=== PATIENT | male | born 1995 | race Caucasian/White ===

== ENCOUNTER 2018-02-12 00:58 | Emergency (ER) | payer MEDICARE ==
[2018-02-12] MEDS ORDERED: SODIUM CHLORIDE 0.9% 1,000 ML IV STA (01:04)
--- NOTE | 2018-02-12 01:07 | ED ---
Seizure HPI - General Stated Complaint: SEIZURE Time Seen by Provider: 02/12/18 01:00 - History of Present Illness Initial Comments: House a 22-year-old male is brought to the ED via EMS for possible seizure-like episode. Reports that he was in his usual state of health throughout the day today, he denies any alcohol or drug use. He reports that he laid down and suddenly felt like his brain turned off. He walked out to the common room in his house and told his mother he thought he was having a seizure. At that point his right arm began to shake. He remained awake alert oriented and speaking. EMS was called. They report that the patient's right arm seemed to be in a flexed position but otherwise no obvious seizure activity. The patient had no postictal period. No tongue biting or loss of bowel or bladder continence. The patient remained awake and alert but continued to stay he believes he is having seizure. Mom reports the patient has a distant history of something similar to this in 2007, he was evaluated at that time, he was transiently placed on antiepileptic medications but after a thorough neurology evaluation at the [facility] was determined that he was not epileptic medications were discontinued. He is otherwise healthy. He was recently treated for an upper respiratory infection with by mouth antibiotics which he completed earlier in the week. - Related Data Allergies Allergy/AdvReac Type Severity Reaction Status Date / Time No Known Allergies Allergy Verified 02/12/18 01:07 Review of Systems ROS Statement: Those systems with pertinent positive or pertinent negative responses have been documented in the HPI. ROS Other: All systems not noted in ROS Statement are negative. General Exam - General Exam Comments Initial Comments: Physical Exam GENERAL: Patient is well-developed and well-nourished. Patient is nontoxic and well- hydrated and is in no distress. HENT: Normocephalic, Atraumatic. No evidence of tongue biting EYES: PERRL, EOMI PULMONARY: Tachypnea Unlabored respirations. No audible rales rhonchi or wheezing was noted. CARDIOVASCULAR: There is a regular rate and rhythm without any murmurs gallops or rubs. ABDOMEN: Soft and nontender with normal bowel sounds. SKIN: Skin is clear with no lesions or rashes and otherwise unremarkable. : Deferred NEUROLOGIC: Patient is alert and oriented x3. Moving all extremities spontaneously No focal neurologic deficits MUSCULOSKELETAL: Normal extremities with adequate strength and full range of motion. No lower extremity swelling or edema. No calf tenderness. PSYCHIATRIC: Very anxious appearing Limitations: no limitations Course Vital Signs 02/12/18 01:01 Temperature 99.2 F Pulse Rate 85 Respiratory 18 Rate Blood Pressure 143/93 O2 Sat by Pulse 97 Oximetry Medical Decision Making - Medical Decision Making Patient was seen and evaluated, history obtained from patient and EMS EMS contacted because the patient told his mother he felt like he was having a seizure, reports he felt like his brain turned off and his right arm was shaking No witnessed seizure activity No post ictal state, no evidence of seizure Patient continues to complain that he is seizing at time of admission Labs and imaging ordered Labs with no significant abnormality CT head with no abnormality Patient was re-assessed, reports feeling well, I offered patient observation for further monitoring vs discharge home with out patient follow up. Patient and mother at bedside prefer discharge home at this time. Return parameters discussed. patient discharged home in stable condition. - Lab Data Result diagrams: 02/12/18 01:08 02/12/18 01:08 Lab Results 02/12/18 02/12/18 02/12/18 Range/Units 01:08 01:08 01:29 WBC 13.1 H (3.8-10.6) k/uL RBC 5.25 (4.30-5.90) m/uL Hgb 16.4 (13.0-17.5) gm/dL Hct 45.8 (39.0-53.0) % MCV 87.3 (80.0-100.0) fL MCH 31.2 (25.0-35.0) pg MCHC 35.7 (31.0-37.0) g/dL RDW 12.5 (11.5-15.5) % Plt Count 321 (150-450) k/uL Neutrophils % 82 % Lymphocytes % 12 % Monocytes % 4 % Eosinophils % 0 % Basophils % 1 % Neutrophils # 10.7 H (1.3-7.7) k/uL Lymphocytes # 1.6 (1.0-4.8) k/uL Monocytes # 0.6 (0-1.0) k/uL Eosinophils # 0.1 (0-0.7) k/uL Basophils # 0.1 (0-0.2) k/uL Sodium 140 (137-145) mmol/L Potassium 3.8 (3.5-5.1) mmol/L Chloride 109 H (98-107) mmol/L Carbon Dioxide 19 L (22-30) mmol/L Anion Gap 12 mmol/L BUN 14 (9-20) mg/dL Creatinine 0.77 (0.66-1.25) mg/dL Est GFR (CKD-EPI)AfAm >90 (>60 ml/min/1.73 sqM) Est GFR (CKD-EPI)NonAf >90 (>60 ml/min/1.73 sqM) Glucose 109 H (74-99) mg/dL Calcium 9.8 (8.4-10.2) mg/dL Total Bilirubin 0.7 (0.2-1.3) mg/dL AST 20 (17-59) U/L ALT 25 (21-72) U/L Alkaline Phosphatase 65 (38-126) U/L Total Protein 7.2 (6.3-8.2) g/dL Albumin 4.5 (3.5-5.0) g/dL Urine Color Yellow Urine Appearance Cloudy (Clear) Urine pH 7.0 (5.0-8.0) Ur Specific [place] 1.027 (1.001-1.035) Urine Protein 1+ H (Negative) Urine Glucose (UA) Negative (Negative) Urine Ketones 2+ H (Negative) Urine Blood Negative (Negative) Urine Nitrite Negative (Negative) Urine Bilirubin Negative (Negative) Urine Urobilinogen 2.0 (<2.0) mg/dL Ur Leukocyte Esterase Negative (Negative) Urine RBC 4 (0-5) /hpf Urine WBC 4 (0-5) /hpf Amorphous Sediment Rare H (None) /hpf Urine Mucus Moderate H (None) /hpf Urine Opiates Screen Not Detected (NotDetected) Ur Oxycodone Screen Not Detected (NotDetected) Urine Methadone Screen Not Detected (NotDetected) Ur Propoxyphene Screen Not Detected (NotDetected) Ur Barbiturates Screen Not Detected (NotDetected) U Tricyclic Antidepress Not Detected (NotDetected) Ur Phencyclidine Scrn Not Detected (NotDetected) Ur Amphetamines Screen Not Detected (NotDetected) U Methamphetamines Scrn Not Detected (NotDetected) U Benzodiazepines Scrn Not Detected (NotDetected) Urine Cocaine Screen Not Detected (NotDetected) U Marijuana (THC) Screen Not Detected (NotDetected) Serum Alcohol <10 mg/dL - EKG Data -: EKG Interpreted by Me EKG shows normal: sinus rhythm Rate: normal EKG Comments: EKG obtained at 1:45 AM, rate is 71, rhythm is sinus, there is a rightward axis , normal intervals, IA 152, QRS 96, QTC 447. There are no acute ST elevations or depressions no evidence of acute ischemia or infarction. Disposition Clinical Impression: Episode of shaking, Hyperventilation Disposition: HOME SELF-CARE Condition: Good Instructions: New-Onset Seizure in Adults (ED) Is patient prescribed a controlled substance at d/c from ED?: No Referrals: Ajay Pavon DO [Primary Care Provider] - 1-2 days Jorge Hurd MD [STAFF PHYSICIAN] - 1-2 days Time of Disposition: 03:00
[2018-02-12 01:26] LABS: Basophils # (A) 0.1 k/uL (0-0.2); Basophils % (A) 1 %; Eosinophils # (A) 0.1 k/uL (0-0.7); Eosinophils % (A) 0 %; HCT 45.8 % (39.0-53.0); HGB 16.4 gm/dL (13.0-17.5); Lymphocytes # (A) 1.6 k/uL (1.0-4.8); Lymphocytes % (A) 12 %; MCH 31.2 pg (25.0-35.0); MCHC 35.7 g/dL (31.0-37.0); MCV 87.3 fL (80.0-100.0); Monocytes # (A) 0.6 k/uL (0-1.0); Monocytes % (A) 4 %; Neutrophils # (A) 10.7 k/uL (1.3-7.7); Neutrophils % (A) 82 %; Platelet Count 321 k/uL (150-450); RBC 5.25 m/uL (4.30-5.90); RDW 12.5 % (11.5-15.5); WBC 13.1 k/uL (3.8-10.6)
[2018-02-12 01:33] LABS: ALT 25 U/L (21-72); AST 20 U/L (17-59); Albumin 4.5 g/dL (3.5-5.0); Alcohol <10 mg/dL; Alkaline Phosphatase 65 U/L (38-126); Anion Gap 12 mmol/L; Blood Urea Nitrogen 14 mg/dL (9-20); Calcium 9.8 mg/dL (8.4-10.2); Carbon Dioxide 19 mmol/L (22-30); Chloride 109 mmol/L (98-107); Glucose 109 mg/dL (74-99); Potassium 3.8 mmol/L (3.5-5.1); Sodium 140 mmol/L (137-145); Total Bilirubin 0.7 mg/dL (0.2-1.3); Total Protein 7.2 g/dL (6.3-8.2)
--- NOTE | 2018-02-12 01:35 | CT ---
EXAMINATION TYPE: CT brain wo con DATE OF EXAM: 02/12/2018 COMPARISON: 12/24/2008 HISTORY: seizure, headache CT DLP: 1166.4 mGycm. Automated Exposure Control for Dose Reduction was Utilized. TECHNIQUE: CT scan of the head is performed without contrast. FINDINGS: Ventricles and sulci appear normal. There is no mass effect nor midline shift. There is no sign of intracranial hemorrhage. Calvarium is intact. IMPRESSION: Negative CT scan of the brain. No change.
[2018-02-12 01:50] LABS: Amorphous Sediment,Urine Rare /hpf; Appearance,Urine Cloudy (Clear); Bilirubin,Urine Negative (Negative); Blood,Urine Negative (Negative); Color,Urine Yellow; Glucose,Urine (UA) Negative (Negative); Ketones,Urine 2+ (Negative); Leukocyte Esterase,Urine Negative (Negative); Mucus,Urine Moderate /hpf; Nitrite,Urine Negative (Negative); Protein,Urine 1+ (Negative); RBC,Urine 4 /hpf (0-5); Specific Gravity,Urine 1.027 (1.001-1.035); WBC,Urine 4 /hpf (0-5)
[2018-02-12 01:53] LABS: Amphetamine Screen,Urine Not Detected (NotDetected); Barbiturate Screen,Urine Not Detected (NotDetected); Benzodiazepines Screen,Urine Not Detected (NotDetected); Cocaine Screen,Urine Not Detected (NotDetected); Methadone Screen, Urine Not Detected (NotDetected); Opiate Screen,Urine Not Detected (NotDetected); Oxycodone Screen, Urine Not Detected (NotDetected); Phencyclidine Screen,Urine Not Detected (NotDetected); Tricyclic Antidepressant,Urine Not Detected (NotDetected); Urn Cannabinoid Scrn Not Detected (NotDetected)
[2018-02-12 03:23] VITALS: BP 133/91; PULSE 76; RESP 16; TEMP 98.6
== END 2018-02-12 03:21 | disposition home or self-care (01) ==
LOC: EEVIPCON 00:58 → EC 00:58
DX: R06.4 Hyperventilation (principal); R25.1 Tremor, unspecified
CPT/HCPCS: 99285; 96360; 36415; 93005; 80053; 85025; 81001; 80306; 70450; G0480; 80320

== ENCOUNTER 2018-02-13 13:46 | Emergency (ER) | payer MEDICARE ==
[2018-02-13 13:51] VITALS: RESP 18
[2018-02-13] MEDS ORDERED: ONDANSETRON 4 MG/2 ML VIAL IVP STA (15:35)
[2018-02-13] MEDS ORDERED: diphenhydrAMINE 50 MG/ML 1 ML VIAL IVP STA (15:35)
[2018-02-13] MEDS ORDERED: KETOROLAC 30 MG/ML 1 ML VIAL IVP STA (15:35)
--- NOTE | 2018-02-13 16:42 | ED ---
Headache HPI - General Chief Complaint: Headache Stated Complaint: lightheaded/tired-revisit Time Seen by Provider: 02/13/18 14:33 Mode of arrival: ambulatory Limitations: no limitations - History of Present Illness Initial Comments: 22-year-old male with past medical history of cognitive typhlitis and remote seizure history in 2008 who presents today for chief complaint of headache and sinus pressure. Patient was evaluated yesterday for seizure-like activity, workup was negative including CT of the brain without contrast, EKG and laboratory studies. Family denies any seizure-like activity following discharge or any postictal states. Mother states that he has been acting appropriately, knows no neurological deficits. Today patient woke up with forehead and pressure of the cheeks he stated he "felt a little off", and admits to some chills, denies fever. He denies any visual changes, double vision, vomiting, nausea, photophobia, neck stiffness, night sweats, IV drug use or history of cancer. Patient denies this being the worst headache of his life and admits that this feels identical 20s had a sinus infection the past. Mother states that he recently finished a course of buttocks for sinusitis. Upon arrival patient's vital signs stable. Patient appears well. - Related Data Home Medications Medication Instructions Recorded Confirmed Multivitamins, Thera [Multivitamin 1 tab PO DAILY 02/13/18 02/13/18 (formulary)] Previous Rx's Medication Instructions Recorded Doxycycline [Vibramycin] 100 mg PO BID 10 Days #20 cap 02/13/18 Ibuprofen 800 mg PO Q8H PRN 7 Days #21 tablet 02/13/18 Allergies Allergy/AdvReac Type Severity Reaction Status Date / Time No Known Allergies Allergy Verified 02/13/18 14:32 Review of Systems ROS Statement: Those systems with pertinent positive or pertinent negative responses have been documented in the HPI. ROS Other: All systems not noted in ROS Statement are negative. Constitutional: Reports: chills. Denies: fever, night sweats Eyes: Denies: eye pain, vision change ENT: Denies: ear pain, throat pain, dental pain Respiratory: Denies: cough, dyspnea, wheezes, hemoptysis, stridor Cardiovascular: Denies: chest pain, palpitations Endocrine: Denies: fatigue Gastrointestinal: Denies: abdominal pain, nausea, vomiting, diarrhea, constipation Genitourinary: Denies: urgency, dysuria Musculoskeletal: Denies: back pain Skin: Denies: rash, lesions Neurological: Reports: headache (headache frontal, with facial pressure b/l). Denies: weakness, numbness, paresthesias, confusion Past Medical History Past Medical History: Seizure Disorder Additional Past Medical History / Comment(s): one previous seizure in 2007 History of Any Multi-Drug Resistant Organisms: None Reported Additional Past Surgical History / Comment(s): eye surgeries Past Psychological History: No Psychological Hx Reported Smoking Status: Never smoker Past Alcohol Use History: None Reported Past Drug Use History: None Reported General Exam - General Exam Comments Initial Comments: General: The patient is awake and alert, in no distress, and does not appear acutely ill. Eye: Pupils are equal, round and reactive to light, extra-ocular movements are intact. No nystagmus. No lateral or conjugate gaze. Corneal reflex intact. No noted proptosis or exophtalmos. There is normal conjunctiva bilaterally. No signs of icterus. Ears, nose, mouth and throat: There are moist mucous membranes and no oral lesions. No erythema of the oropharynx, no tonsillar enlargement. Uvula is midline. To make membranes within normal limits bilaterally, there is cerumen in the external auditory canals bilaterally. Patient missed to tenderness to palpation of the maxillary sinuses bilaterally. There is also tenderness to palpation of the frontal sinus. Patient denies any pain to palpation over the temporal region. Neck: The neck is supple, there is no tenderness or JVD. No anterior cervical lymphadenopathy. Cardiovascular: There is a regular rate and rhythm. No murmur, rub or gallop is appreciated. Respiratory: Lungs are clear to auscultation, respirations are non-labored, breath sounds are equal. No wheezes, stridor, rales, or rhonchi. Musculoskeletal: Normal ROM, no tenderness. Strength 5/5. Sensation intact. Pulses equal bilaterally 2+. Neurological: A&O x 3. CN II-XII intact-corneal reflex intact, memory intact, Able to follow simple verbal. Able to name a common object (pen). High quality, labial (pa) and lingual (la) speech. Low quality posterior pharynx/larynx (ga) voice sounds. Able to express general knowledge (days in a week). No hemineglect or inattention noted. Finger agnosia (-) and spatially oriented ( identified L index finger touched R shoulder with L index finger). Light touch and temperature sensation present over the face, chest, abdomen, back, UE bilaterally, and LE bilaterally. Able to localize point during point localization b/l and extinction. No visible bulk atrophy, hypertrophy, fasciculations, or myoclonus of the UE or LE b/l. Full PROM in UE and LE b/l. Bilateral muscle strength 5/5 for the following muscles: deltoid, biceps, triceps, brachioradialis, wrist extensors/flexor, hip flexor, hip abductors/ adductors, hamstrings, quadriceps, feet dorsiflexors/plantar flexors. Finger to nose, finger to the examiners finger, and heel to jay coordinated and accurate b/l. Coordinated and even demonstration of hand flip, finger to thumb, and toe tap b/l.Gait is coordinated and even in stride with tandem. (-) pronator drift. No nuchal rigidity. (-) Brudzinskis and Kernig signs. Skin: Skin is warm and dry and no rashes or lesions are noted. Psychiatric: Cooperative, appropriate mood & affect, normal judgment. Limitations: no limitations Course Vital Signs 02/13/18 02/13/18 02/13/18 13:48 16:40 16:55 Temperature 97.9 F 98.6 F Pulse Rate 117 H 100 Respiratory 18 18 Rate Blood Pressure 126/88 150/94 O2 Sat by Pulse 98 98 98 Oximetry Medical Decision Making - Medical Decision Making PE concerning for sinusitis, pt has pain to palpation of the maxillary sinus b/ l and front sinus. Pt afebrile, appears well, nontoxic. Pt CARREON resolved with toradol and benadryl. Findings discussed with patient who feels symptoms are identical to when he had a sinus infection in the pst. In addition findings discussd with both patient mother and attending physician at this time we feel symptoms clinically correlate with sinusitis. Pt has chronic issues with sinuses and I feel should be evaluated by ENT on outpatient basis. Patient was started on doxycycline BID x 10 days given recent antibiotic use and Augmentin. Patient's rfid engineer was instructed to follow-up with primary care provider one to 2 days as well as ENT as discussed previously. Director Hedis aware she has to call to make the appointment with the specialist, verbalized understanding. Return parameters discussed in detail, verbalized understanding. At this time after discussing the case with Dr. Jc the patient is stable for discharge. Patient discharged in stable condition, with resolution of symptoms. Disposition Clinical Impression: Chronic sinusitis Disposition: HOME SELF-CARE Condition: Good Instructions: Sinusitis (ED) Additional Instructions: Please use medication as discussed. Please follow-up with family doctor in the next 2 days. Please follow-up with ENT in the next 1-2 days for evaluation of chronic sinusitis. Please return to emergency room if the symptoms increase or worsen or for any other concerns. Prescriptions: Doxycycline [Vibramycin] 100 mg PO BID 10 Days #20 cap Ibuprofen 800 mg PO Q8H PRN 7 Days #21 tablet PRN Reason: Pain Is patient prescribed a controlled substance at d/c from ED?: No Referrals: Ajay Pavon DO [Primary Care Provider] - 1-2 days Britton Murry DO [Doctor of Osteopathic Medicine] - 1-2 days Time of Disposition: 16:42
[2018-02-13 16:51] VITALS: BP 150/94
[2018-02-13 16:56] VITALS: PULSE 100; TEMP 98.6
== END 2018-02-13 16:55 | disposition home or self-care (01) ==
LOC: EC 13:46
DX: J32.9 Chronic sinusitis, unspecified (principal)
CPT/HCPCS: 93005; 99284; 96374; 96375 ×2; J1200; J2405; J1885

== ENCOUNTER 2018-03-13 16:41 | Emergency (ER) | payer MEDICARE ==
[2018-03-13 17:40] VITALS: RESP 18
[2018-03-13] MEDS ORDERED: diphenhydrAMINE 50 MG/ML 1 ML VIAL IVP STA (19:35)
[2018-03-13] MEDS ORDERED: SODIUM CHLORIDE 0.9% 1,000 ML IV ONE (19:35)
[2018-03-13] MEDS ORDERED: KETOROLAC 30 MG/ML 1 ML VIAL IVP STA (19:35)
[2018-03-13] MEDS ORDERED: METOCLOPRAMIDE 5 MG/ML 2 ML VIAL IVP STA (19:35)
--- NOTE | 2018-03-13 19:41 | ED ---
General Adult HPI - General Chief complaint: Recheck/Abnormal Lab/Rx Stated complaint: sinus infection,High heart rate Time Seen by Provider: 03/13/18 19:12 Source: patient Mode of arrival: ambulatory Limitations: no limitations - History of Present Illness Initial comments: 22-year-old male patient presents to the emergency department today for evaluation of headache and fatigue. Patient has been having similar symptoms for the last month. Patient is on his third course of antibiotics for sinusitis , he did just complete a prescription for steroids. Patient states he is not feeling any better. Patient states he is having headaches daily. States that on the frontal region. Patient states he does have sinus congestion and has been blowing out dry bloody mucus. Patient denies any fevers or chills. He did go to urgent care today and was sent here for further evaluation for possible mono. Patient denies any significant fever or chills. Denies any sore throat, cough, nausea, or vomiting. He denies any blurred vision, double vision, dizziness, or weakness. Denies any numbness or tingling to his extremities. Patient was seen and evaluated here approximate one month ago after having what appeared to be seizure-like activity. He was then seen the following day for complaints similar to today. Patient and parent have not had a chance to follow-up with your nose and throat specialty or with neurology after these episodes. Patient is taking ibuprofen daily for the headaches but states the medication does not help. Patient denies any recent rash, shortness breath, chest pain, abdominal pain, diarrhea, constipation, back pain, hematuria , dysuria, urinary urgency, urinary frequency, or any other complaints. - Related Data Home Medications Medication Instructions Recorded Confirmed Multivitamins, Thera [Multivitamin 1 tab PO DAILY 02/13/18 03/13/18 (formulary)] Amoxic-Pot Clav 875-125Mg 1 tab PO Q12HR 03/13/18 03/13/18 [Augmentin 875-125] Previous Rx's Medication Instructions Recorded Ibuprofen 800 mg PO Q8H PRN 7 Days #21 tablet 02/13/18 Allergies Allergy/AdvReac Type Severity Reaction Status Date / Time No Known Allergies Allergy Verified 03/13/18 19:16 Review of Systems ROS Statement: Those systems with pertinent positive or pertinent negative responses have been documented in the HPI. ROS Other: All systems not noted in ROS Statement are negative. Past Medical History Past Medical History: Seizure Disorder Additional Past Medical History / Comment(s): one previous seizure in 2007 History of Any Multi-Drug Resistant Organisms: None Reported Additional Past Surgical History / Comment(s): eye surgeries Past Psychological History: No Psychological Hx Reported Smoking Status: Never smoker Past Alcohol Use History: None Reported Past Drug Use History: None Reported General Exam Limitations: no limitations General appearance: alert, in no apparent distress, other (This is a well- developed, well-nourished adult male patient in no acute distress. Vital signs upon presentation are temperature 98.7F, pulse 111, respirations 18, blood pressure 136/92, pulse ox 97% on room air.) Eye exam: Present: normal appearance, PERRL, EOMI. Absent: scleral icterus, conjunctival injection, nystagmus, periorbital swelling ENT exam: Present: normal exam, normal oropharynx, mucous membranes moist Neck exam: Present: normal inspection. Absent: tenderness, meningismus, lymphadenopathy Respiratory exam: Present: normal lung sounds bilaterally. Absent: respiratory distress, wheezes, rales, rhonchi, stridor Cardiovascular Exam: Present: regular rate, normal rhythm, normal heart sounds. Absent: systolic murmur, diastolic murmur, rubs, gallop, clicks GI/Abdominal exam: Present: soft, normal bowel sounds. Absent: distended, tenderness, guarding, rebound, rigid Neurological exam: Present: alert, oriented X3, CN II-XII intact, other ( Strength in all 4 extremities is 5/5.) Psychiatric exam: Present: normal affect, normal mood Skin exam: Present: warm, dry, intact, normal color. Absent: rash Course Vital Signs 03/13/18 03/13/18 03/13/18 17:37 18:57 20:07 Temperature 98.7 F 99.4 F Pulse Rate 111 H 87 Respiratory 18 18 Rate Blood Pressure 136/92 127/92 O2 Sat by Pulse 97 98 Oximetry 03/13/18 22:14 Temperature 98.2 F Pulse Rate 77 Respiratory 18 Rate Blood Pressure 149/91 O2 Sat by Pulse 97 Oximetry Medical Decision Making - Medical Decision Making 22-year-old male patient presents to the emergency department today for evaluation of a frontal headaches and fatigue. Physical examination is unremarkable. Patient is neurologically intact with no focal deficits. Labs reviewed and are unremarkable. Patient is negative for mono and strep. Did perform CT of the sinuses which were negative for any evidence of infection. Patient is currently on his third course of antibiotics for sinusitis, I did instruct the family to stop this medication. We did discuss possibility of migraines as a cause for his symptoms. Patient did have CT of the brain performed less than one month ago, we did not repeat this test today given patient's neurologic findings and normal findings on the previous scan. Parents are advised to obtain [id number] migraine medication such as Excedrin Migraine. They do have an appointment with neurology on , the urged to keep this appointment. They're urged to start a headache diary to take with them to their appointment. I do also have an appointment coming up with the ear, nose, and throat specialist, they are urged to keep this plan as well. Return parameters were discussed in detail. They verbalize understanding and agree with this plan. - Lab Data Result diagrams: 03/13/18 19:57 03/13/18 19:57 Lab Results 03/13/18 03/13/18 03/13/18 Range/Units 19:08 19:57 19:57 WBC 9.1 (3.8-10.6) k/uL RBC 5.63 (4.30-5.90) m/uL Hgb 17.7 H (13.0-17.5) gm/dL Hct 52.0 (39.0-53.0) % MCV 92.4 D (80.0-100.0) fL MCH 31.5 (25.0-35.0) pg MCHC 34.1 (31.0-37.0) g/dL RDW 13.2 (11.5-15.5) % Plt Count 294 (150-450) k/uL Neutrophils % 65 % Lymphocytes % 27 % Monocytes % 5 % Eosinophils % 1 % Basophils % 1 % Neutrophils # 5.9 (1.3-7.7) k/uL Lymphocytes # 2.4 (1.0-4.8) k/uL Monocytes # 0.5 (0-1.0) k/uL Eosinophils # 0.1 (0-0.7) k/uL Basophils # 0.1 (0-0.2) k/uL Sodium 140 (137-145) mmol/L Potassium 4.2 (3.5-5.1) mmol/L Chloride 105 (98-107) mmol/L Carbon Dioxide 25 (22-30) mmol/L Anion Gap 10 mmol/L BUN 13 (9-20) mg/dL Creatinine 0.79 (0.66-1.25) mg/dL Est GFR (CKD-EPI)AfAm >90 (>60 ml/min/1.73 sqM) Est GFR (CKD-EPI)NonAf >90 (>60 ml/min/1.73 sqM) Glucose 96 (74-99) mg/dL Calcium 9.6 (8.4-10.2) mg/dL Total Bilirubin 0.7 (0.2-1.3) mg/dL AST 20 (17-59) U/L ALT 25 (21-72) U/L Alkaline Phosphatase 61 (38-126) U/L Total Protein 7.3 (6.3-8.2) g/dL Albumin 4.5 (3.5-5.0) g/dL TSH 0.521 (0.465-4.680) mIU/L Heterophile Antibody (Negative) Group A Strep Rapid Negative (Negative) 03/13/18 Range/Units 19:57 WBC (3.8-10.6) k/uL RBC (4.30-5.90) m/uL Hgb (13.0-17.5) gm/dL Hct (39.0-53.0) % MCV (80.0-100.0) fL MCH (25.0-35.0) pg MCHC (31.0-37.0) g/dL RDW (11.5-15.5) % Plt Count (150-450) k/uL Neutrophils % % Lymphocytes % % Monocytes % % Eosinophils % % Basophils % % Neutrophils # (1.3-7.7) k/uL Lymphocytes # (1.0-4.8) k/uL Monocytes # (0-1.0) k/uL Eosinophils # (0-0.7) k/uL Basophils # (0-0.2) k/uL Sodium (137-145) mmol/L Potassium (3.5-5.1) mmol/L Chloride (98-107) mmol/L Carbon Dioxide (22-30) mmol/L Anion Gap mmol/L BUN (9-20) mg/dL Creatinine (0.66-1.25) mg/dL Est GFR (CKD-EPI)AfAm (>60 ml/min/1.73 sqM) Est GFR (CKD-EPI)NonAf (>60 ml/min/1.73 sqM) Glucose (74-99) mg/dL Calcium (8.4-10.2) mg/dL Total Bilirubin (0.2-1.3) mg/dL AST (17-59) U/L ALT (21-72) U/L Alkaline Phosphatase (38-126) U/L Total Protein (6.3-8.2) g/dL Albumin (3.5-5.0) g/dL TSH (0.465-4.680) mIU/L Heterophile Antibody Negative (Negative) Group A Strep Rapid (Negative) - Radiology Data Radiology results: report reviewed, image reviewed CT of the sinuses performed without contrast. Report was reviewed in its entirety. Impression by Dr. Heather Woodward shows no acute process. Disposition Clinical Impression: Headache, Fatigue Disposition: HOME SELF-CARE Condition: Good Instructions: Acute Headache (ED), Fatigue (ED) Additional Instructions: Purchase [id number] Excedrin Migraine or similar product to treat headaches. Follow-up with neurologist as you have planned on . Follow- up with ears, nose, and throat specialist as you have planned. Follow up with the primary care physician for recheck as soon as possible. Return immediately for any new, worsening, or concerning symptoms. Is patient prescribed a controlled substance at d/c from ED?: No Referrals: Ajay Pavon DO [Primary Care Provider] - 1-2 days Time of Disposition: 22:00
[2018-03-13 20:21] LABS: ALT 25 U/L (21-72); AST 20 U/L (17-59); Albumin 4.5 g/dL (3.5-5.0); Alkaline Phosphatase 61 U/L (38-126); Anion Gap 10 mmol/L; Blood Urea Nitrogen 13 mg/dL (9-20); Calcium 9.6 mg/dL (8.4-10.2); Carbon Dioxide 25 mmol/L (22-30); Chloride 105 mmol/L (98-107); Glucose 96 mg/dL (74-99); Potassium 4.2 mmol/L (3.5-5.1); Sodium 140 mmol/L (137-145); Total Bilirubin 0.7 mg/dL (0.2-1.3); Total Protein 7.3 g/dL (6.3-8.2)
[2018-03-13 20:38] LABS: Basophils # (A) 0.1 k/uL (0-0.2); Basophils % (A) 1 %; Eosinophils # (A) 0.1 k/uL (0-0.7); Eosinophils % (A) 1 %; HGB 17.7 gm/dL (13.0-17.5); Lymphocytes # (A) 2.4 k/uL (1.0-4.8); Lymphocytes % (A) 27 %; MCH 31.5 pg (25.0-35.0); MCHC 34.1 g/dL (31.0-37.0); Mean Platelet Volume 8.5; Monocytes # (A) 0.5 k/uL (0-1.0); Monocytes % (A) 5 %; Neutrophils # (A) 5.9 k/uL (1.3-7.7); Neutrophils % (A) 65 %; Platelet Count 294 k/uL (150-450); RBC 5.63 m/uL (4.30-5.90); RDW 13.2 % (11.5-15.5); WBC 9.1 k/uL (3.8-10.6)
[2018-03-13 20:40] LABS: MCV 92.4 fL (80.0-100.0)
--- NOTE | 2018-03-13 21:25 | CT ---
EXAMINATION TYPE: CT sinus wo con DATE OF EXAM: 03/13/2018 COMPARISON: 07/07/2015 HISTORY: Weaknss, tachycardia, sinus infection CT DLP: 375.4 mGycm. Automated Exposure Control for Dose Reduction was Utilized. TECHNIQUE: CT scan of the sinuses is performed without contrast, axial images are obtained, coronal r eformatted images are also reviewed. FINDINGS: There is a 1 cm mucous retention cyst at the base of the right maxillary sinus, similar to the prior CT, but the right maxillary sinus is otherwise clear. The remainder of the paranasal sinuse s are bilaterally clear. The middle ear cavities and mastoid sinus air cells are bilaterally clear. The orbits are unremarkable. No incidental skeletal or soft tissue findings. IMPRESSION: NO ACUTE PROCESS.
[2018-03-13 22:15] VITALS: BP 149/91; PULSE 77; TEMP 98.2
== END 2018-03-13 22:15 | disposition home or self-care (01) ==
LOC: EC 16:41
DX: R51 Headache (principal); R53.83 Other fatigue; R00.0 Tachycardia, unspecified; R09.81 Nasal congestion
CPT/HCPCS: 36415; 80053; 84443; 85025; 86308; 87081; 87430; 70486; 99285; 96374; 96375 ×2; 96361 ×2; J1200; J2765; J1885

== ENCOUNTER 2018-05-18 13:11 | Emergency (ER) | payer MEDICARE ==
[2018-05-18 13:17] VITALS: TEMP 98.3
[2018-05-18] MEDS ORDERED: METOCLOPRAMIDE 5 MG/ML 2 ML VIAL IVP STA (13:33)
[2018-05-18] MEDS ORDERED: diphenhydrAMINE 50 MG/ML 1 ML VIAL IVP STA (13:33)
[2018-05-18] MEDS ORDERED: KETOROLAC 30 MG/ML 1 ML VIAL IVP STA (13:33)
[2018-05-18] MEDS ORDERED: SODIUM CHLORIDE 0.9% 1,000 ML IV STA (13:33)
--- NOTE | 2018-05-18 13:40 | ED ---
General Adult HPI - General Chief complaint: Headache Stated complaint: Migraine for a month Source: patient, family, RN notes reviewed Mode of arrival: ambulatory Limitations: no limitations - History of Present Illness Initial comments: 22-year-old male with a past medical history of seizure disorder presents to the emergency department for a chief Headache times one month. Patient states this headache has been intermittent. He states it is a left-sided headache and gradually comes on intermittently. Patient states that he has actually had these intermittent headaches for over one year. He states he has photophobia and nausea with the headaches. Patient has been evaluated by neurology and had a negative CAT scan, MRI, and EEG. Patient does have an appointment with neurology coming up but when he contacted neurology about pain today they said go to the emergency department for pain medication. Patient denies any neuro deficits, denies any difficult in walking or slurred speech. States he is generally feeling his normal self. However he does have a decreased appetite due to the nausea. Patient is able to tolerate by mouth intake at home. Patient went to urgent care and they recommended blood work. Patient has no other complaints at this time including shortness of breath, chest pain, abdominal pain, or visual changes. - Related Data Home Medications Medication Instructions Recorded Confirmed Multivitamins, Thera [Multivitamin 1 tab PO DAILY 02/13/18 05/18/18 (formulary)] Ibuprofen [Motrin Ib] 600 mg PO Q6H PRN 05/18/18 05/18/18 Previous Rx's Medication Instructions Recorded Ondansetron [Zofran ODT] 4 mg PO Q8HR PRN #15 tab 05/18/18 Allergies Allergy/AdvReac Type Severity Reaction Status Date / Time No Known Allergies Allergy Verified 05/18/18 13:25 Review of Systems ROS Statement: Those systems with pertinent positive or pertinent negative responses have been documented in the HPI. ROS Other: All systems not noted in ROS Statement are negative. Past Medical History Past Medical History: Seizure Disorder Additional Past Medical History / Comment(s): one previous seizure in 2007 History of Any Multi-Drug Resistant Organisms: None Reported Additional Past Surgical History / Comment(s): eye surgeries Past Psychological History: No Psychological Hx Reported Smoking Status: Never smoker Past Alcohol Use History: None Reported Past Drug Use History: None Reported General Exam Limitations: no limitations General appearance: alert, in no apparent distress Head exam: Present: atraumatic, normocephalic, normal inspection Eye exam: Present: normal appearance, PERRL, EOMI. Absent: scleral icterus, conjunctival injection, periorbital swelling ENT exam: Present: normal exam, mucous membranes moist Neck exam: Present: normal inspection, full ROM. Absent: tenderness, meningismus, lymphadenopathy Respiratory exam: Present: normal lung sounds bilaterally. Absent: respiratory distress, wheezes, rales, rhonchi, stridor Cardiovascular Exam: Present: regular rate, normal rhythm, normal heart sounds. Absent: systolic murmur, diastolic murmur, rubs, gallop, clicks Neurological exam: Present: alert, oriented X3, CN II-XII intact Expanded Patient oriented to: Present: person, place, time Speech: Present: fluid speech Cranial nerves: EOM's Intact: Normal, Tongue Deviation: Normal, Nystagmus: Normal, Facial Sensation: Normal Cerebellar function: Finger to Nose: Normal Upper motor neuron: Pronator Drift: Normal Sensory exam: Upper Extremity Light Touch: Normal, Upper Extremity Pin Prick: Normal, Lower Extremity Light Touch: Normal, Lower Extremity Pin Prick: Normal Motor strength exam: RUE: 5, LUE: 5, RLE: 5, LLE: 5 Eye Response: (4) open spontaneously Motor Response: (6) obeys commands Verbal Response: (5) oriented Alex Total: 15 Psychiatric exam: Present: normal affect, normal mood Course Vital Signs 05/18/18 05/18/18 13:15 15:21 Temperature 98.3 F Pulse Rate 79 69 Respiratory 20 18 Rate Blood Pressure 147/96 151/94 O2 Sat by Pulse 99 95 Oximetry Medical Decision Making - Medical Decision Making 22-year-old male presents for headache 1 month. Patient states has been on and off over the past year. Patient has had negative CAT scans, EEG, MRI through neurology. Brain CT obtained 3 months ago on 02/12/2018 due to these symptoms was reviewed and shows a negative scan. No mass effect or midline shift. Patient has also had a negative EEG and MRI since that time according to mother and is following up with Dr. Hurd for this. Patient here for pain relief at this time. Patient states that migraine cocktail helped with his pain last time it would like to try this again today. On exam no focal neuro deficits, patient is well-appearing. Mother also requests blood work as urgent care had suggested he had this done. CBC CMP unremarkable. Patient was given pain medications and IV hydration, is feeling much better. Pain has decreased from an 8 to a 5. Patient states he would like to go home. Patient will be given a prescription for Zofran. I offered prescription for Motrin but mother states they have some at home. Patient will contact Dr. Hurd for an earlier appointment otherwise will follow-up at his scheduled appointment in 2 weeks. Discussed returning if he has any worsening symptoms. - Lab Data Result diagrams: 05/18/18 13:49 05/18/18 13:49 Lab Results 05/18/18 05/18/18 Range/Units 13:49 13:49 WBC 6.9 (3.8-10.6) k/uL RBC 5.76 (4.30-5.90) m/uL Hgb 17.5 (13.0-17.5) gm/dL Hct 51.2 (39.0-53.0) % MCV 89.0 (80.0-100.0) fL MCH 30.3 (25.0-35.0) pg MCHC 34.1 (31.0-37.0) g/dL RDW 12.6 (11.5-15.5) % Plt Count 279 (150-450) k/uL Neutrophils % 64 % Lymphocytes % 28 % Monocytes % 4 % Eosinophils % 2 % Basophils % 1 % Neutrophils # 4.4 (1.3-7.7) k/uL Lymphocytes # 1.9 (1.0-4.8) k/uL Monocytes # 0.3 (0-1.0) k/uL Eosinophils # 0.1 (0-0.7) k/uL Basophils # 0.1 (0-0.2) k/uL Sodium 141 (137-145) mmol/L Potassium 4.5 (3.5-5.1) mmol/L Chloride 104 (98-107) mmol/L Carbon Dioxide 27 (22-30) mmol/L Anion Gap 10 mmol/L BUN 10 (9-20) mg/dL Creatinine 0.78 (0.66-1.25) mg/dL Est GFR (CKD-EPI)AfAm >90 (>60 ml/min/1.73 sqM) Est GFR (CKD-EPI)NonAf >90 (>60 ml/min/1.73 sqM) Glucose 77 (74-99) mg/dL Calcium 10.0 (8.4-10.2) mg/dL Total Bilirubin 1.0 (0.2-1.3) mg/dL AST 21 (17-59) U/L ALT 24 (21-72) U/L Alkaline Phosphatase 64 (38-126) U/L Total Protein 7.6 (6.3-8.2) g/dL Albumin 4.8 (3.5-5.0) g/dL Disposition Clinical Impression: Headache Disposition: HOME SELF-CARE Condition: Good Instructions (If sedation given, give patient instructions): Acute Headache (ED ), Migraine Headache (ED) Additional Instructions: Please take Zofran as needed for nausea. Take Motrin as needed for pain. Follow-up with Dr. Hurd in one to 2 days. Return here if you have any worsening symptoms. Prescriptions: Ondansetron [Zofran ODT] 4 mg PO Q8HR PRN #15 tab PRN Reason: Nausea Is patient prescribed a controlled substance at d/c from ED?: No Referrals: Ajay Pavon DO [Primary Care Provider] - 1-2 days Time of Disposition: 15:27
[2018-05-18 14:30] LABS: Basophils # (A) 0.1 k/uL (0-0.2); Basophils % (A) 1 %; Eosinophils # (A) 0.1 k/uL (0-0.7); Eosinophils % (A) 2 %; HCT 51.2 % (39.0-53.0); HGB 17.5 gm/dL (13.0-17.5); Lymphocytes # (A) 1.9 k/uL (1.0-4.8); Lymphocytes % (A) 28 %; MCH 30.3 pg (25.0-35.0); MCHC 34.1 g/dL (31.0-37.0); Mean Platelet Volume 8.6; Monocytes # (A) 0.3 k/uL (0-1.0); Monocytes % (A) 4 %; Neutrophils # (A) 4.4 k/uL (1.3-7.7); Neutrophils % (A) 64 %; Platelet Count 279 k/uL (150-450); RBC 5.76 m/uL (4.30-5.90); RDW 12.6 % (11.5-15.5); WBC 6.9 k/uL (3.8-10.6)
[2018-05-18 14:44] LABS: ALT 24 U/L (21-72); AST 21 U/L (17-59); Albumin 4.8 g/dL (3.5-5.0); Alkaline Phosphatase 64 U/L (38-126); Anion Gap 10 mmol/L; Blood Urea Nitrogen 10 mg/dL (9-20); Carbon Dioxide 27 mmol/L (22-30); Chloride 104 mmol/L (98-107); Glucose 77 mg/dL (74-99); Potassium 4.5 mmol/L (3.5-5.1); Sodium 141 mmol/L (137-145); Total Protein 7.6 g/dL (6.3-8.2)
[2018-05-18 15:24] VITALS: RESP 18
[2018-05-18] MEDS ORDERED: ONDANSETRON 4 MG/2 ML VIAL IVP STA (16:10)
[2018-05-18 16:35] VITALS: BP 149/88; PULSE 79
== END 2018-05-18 16:33 | disposition home or self-care (01) ==
LOC: EC 13:11
DX: R51 Headache (principal); H53.149 Visual discomfort, unspecified; R11.0 Nausea; R63.8 Other symptoms and signs concerning food and fluid intake; Z98.890 Other specified postprocedural states; Z53.20 Procedure and treatment not carried out because of patient's decision for unspecified reasons
CPT/HCPCS: 99284; 96374; 96375 ×2; 96361; 36415; 80053; 85025; J1200; J2765; J1885

== ENCOUNTER 2018-06-01 22:30 | Emergency (ER) | payer MEDICARE ==
[2018-06-01 22:39] VITALS: TEMP 97.4
--- NOTE | 2018-06-01 22:44 | ED ---
General Adult HPI - General Chief complaint: Neuro Symptoms/Deficit Stated complaint: arm/hand numbness Time Seen by Provider: 06/01/18 22:43 Source: patient, family Mode of arrival: ambulatory Limitations: no limitations - History of Present Illness Initial comments: John a 23-year-old male with a history of hemiplegic migraines who presents the emergency department today for evaluation of bilateral hand pain. Patient reports he's been experiencing spasms in his bilateral hands and pain in his bilateral hands for a number of weeks he is scheduled to follow-up with his neurologist. He reports that today he just cannot tolerate the pain any longer. Patient reports the pain comes in waves and lasts for hours and then resolves he cannot identify any exacerbating or relieving factors. Today he feels like the pain is persisted which prompted his mother to bring him to the emergency department. - Related Data Home Medications Medication Instructions Recorded Confirmed Multivitamins, Thera [Multivitamin 1 tab PO DAILY 02/13/18 06/01/18 (formulary)] Ibuprofen [Motrin Ib] 600 mg PO Q6H PRN 05/18/18 06/01/18 Butalb/APAP/Caff 50-325-40Mg 1 tab PO DAILY PRN 06/01/18 06/01/18 [Fioricet 50-325-40] Verapamil HCl 120 mg PO DAILY 06/01/18 06/01/18 Previous Rx's Medication Instructions Recorded Methocarbamol [Robaxin] 750 mg PO TID #30 tab 06/02/18 Pregabalin [Lyrica] 100 mg PO BID 3 Days #30 cap 06/02/18 Allergies Allergy/AdvReac Type Severity Reaction Status Date / Time No Known Allergies Allergy Verified 06/01/18 23:07 Review of Systems ROS Statement: Those systems with pertinent positive or pertinent negative responses have been documented in the HPI. ROS Other: All systems not noted in ROS Statement are negative. Past Medical History Past Medical History: Seizure Disorder Additional Past Medical History / Comment(s): one previous seizure in 2007, mild cognitive impairment History of Any Multi-Drug Resistant Organisms: None Reported Additional Past Surgical History / Comment(s): eye surgeries Past Psychological History: No Psychological Hx Reported Smoking Status: Never smoker Past Alcohol Use History: None Reported Past Drug Use History: None Reported General Exam - General Exam Comments Initial Comments: Physical Exam GENERAL: Patient is well-developed and well-nourished. Patient is nontoxic and well- hydrated and is in no distress. HENT: Normocephalic, Atraumatic. poor oral hygiene EYES: PERRL, EOMI PULMONARY: Unlabored respirations. No audible rales rhonchi or wheezing was noted. CARDIOVASCULAR: There is a regular rate and rhythm without any murmurs gallops or rubs. ABDOMEN: Soft and nontender with normal bowel sounds. SKIN: Skin is clear with no lesions or rashes and otherwise unremarkable. : Deferred NEUROLOGIC: Patient is alert and oriented x3. Moving all extremities spontaneously MUSCULOSKELETAL: Warm and well perfused extremities Normal cap refill Normal passive range of motion of wrist and fingers PSYCHIATRIC: Normal psychiatric evaluation. Anxious Limitations: no limitations Limitations: no limitations Course Vital Signs 06/01/18 06/02/18 22:33 00:08 Temperature 97.4 F L Pulse Rate 104 H 84 Respiratory 20 18 Rate Blood Pressure 158/120 146/100 O2 Sat by Pulse 100 98 Oximetry Medical Decision Making - Medical Decision Making Patient was seen and evaluated patient with chronic hand pain, scheduled to follow up with neurology regarding this. His undergone MRI and further testing. Patient treated with Valium reported significant improvement in his discomfort this time patient comfortable with the plan for discharge home with muscle relaxants. We'll see his neurologist on June 06 Results discussed questions pertaining care were answered patient discharged home in stable condition Disposition Clinical Impression: Hand pain Disposition: HOME SELF-CARE Condition: Stable Prescriptions: Methocarbamol [Robaxin] 750 mg PO TID #30 tab Pregabalin [Lyrica] 100 mg PO BID 3 Days #30 cap Is patient prescribed a controlled substance at d/c from ED?: No Referrals: Ajay Pavon DO [Primary Care Provider] - 1-2 days
[2018-06-01] MEDS ORDERED: DIAZEPAM 5 MG/ML 2 ML INJ IM ONE (23:16)
[2018-06-02 00:09] VITALS: BP 146/100; PULSE 84; RESP 18
== END 2018-06-02 00:24 | disposition home or self-care (01) ==
LOC: EC 22:30
DX: M79.642 Pain in left hand (principal); M79.641 Pain in right hand; G89.29 Other chronic pain; Z79.899 Other long term (current) drug therapy
CPT/HCPCS: 93005; 99284; 96372; J3360

== ENCOUNTER → 2018-06-15 | Outpatient (CLI) | payer MEDICARE ==
--- NOTE | 2018-06-15 18:41 | ECHOF ---
Referral Reason:TACHYCARDIA MEASUREMENTS -------- HEIGHT: 182.9 cm WEIGHT: 75.7 kg BP: IVSd: 1.2 cm (0.6 - 1.1) LVIDd: 4.0 cm (3.9 - 5.3) LVPWd: 1.3 cm (0.6 - 1.1) IVSs: 1.7 cm LVIDs: 2.2 cm LVPWs: 1.8 cm Ao Diam: 3.1 cm (2.0 - 3.7) AV Cusp: 2.0 cm (1.5 - 2.6) LA Diam: 1.8 cm (2.7 - 3.8) MV EXCURSION: 27.072 mm (> 18.000) MV EF SLOPE: 73 mm/s (70 - 150) EPSS: 0.2 cm MV E Gera: 0.79 m/s MV DecT: 175 ms MV A Gera: 0.72 m/s MV E/A Ratio: 1.09 RAP: 5.00 mmHg RVSP: 27.53 mmHg FINDINGS -------- Sinus rhythm. This was a technically good study. The left ventricular size is normal. There is mild concentric left ventricular hypertrophy. Overa ll left ventricular systolic function is normal with, an EF between 55 - 60 %. The right ventricle is normal in size and function. The left atrium is normal in size. The right atrium is normal in size. The aortic valve is trileaflet and appears structurally normal. There is trace mitral regurgitation. Mild prolapse of the anterior mitral valve leaflet. Mild tricuspid regurgitation present. The right ventricular systolic pressure, as measured by Doppl er, is 27.53mmHg. Pulmonic valve appears structurally normal. The aortic root size is normal. Normal inferior vena cava with normal inspiratory collapse consistent with estimated right atrial pre ssure of 5 mmHg. The pericardium is normal. CONCLUSIONS -------- 1. Sinus rhythm. 2. This was a technically good study. 3. The left ventricular size is normal. 4. There is mild concentric left ventricular hypertrophy. 5. Overall left ventricular systolic function is normal with, an EF between 55 - 60 %. 6. The right ventricle is normal in size and function. 7. The left atrium is normal in size. 8. The right atrium is normal in size. 9. The aortic valve is trileaflet and appears structurally normal. 10. There is trace mitral regurgitation. 11. Mild prolapse of the anterior mitral valve leaflet. 12. Mild tricuspid regurgitation present. 13. The right ventricular systolic pressure, as measured by Doppler, is 27.53mmHg. 14. Pulmonic valve appears structurally normal. 15. The aortic root size is normal. 16. Normal inferior vena cava with normal inspiratory collapse consistent with estimated right atrial pressure of 5 mmHg. 17. The pericardium is normal. OUTSOLE ROUNDER: Stephanie Jones RDCS
--- NOTE | 2018-06-20 09:23 | P.ARTDOP ---
Arterial Doppler Upper extremity arterial Doppler Date of study: 06/15/2018 Reason for study: Right arm pain with rotation Findings: Doppler waveforms are multiphasic bilaterally throughout. Digital plethysmography waveforms are normal. There are no significant pressure gradients. Impression: Normal upper extremity arterial study
== END | disposition home or self-care (01) ==
LOC: RADECHMAIN 11:26
PROVIDERS: ATTEND Family Medicine
DX: I08.1 Rheumatic disorders of both mitral and tricuspid valves (principal); M79.641 Pain in right hand
CPT/HCPCS: 93306; 93923

== ENCOUNTER 2018-06-28 12:13 | Emergency (ER) | payer MEDICARE ==
[2018-06-28] MEDS ORDERED: KETOROLAC 30 MG/ML 1 ML VIAL IVP STA (13:19)
--- NOTE | 2018-06-28 13:23 | ED ---
General Adult HPI - General Chief complaint: Recheck/Abnormal Lab/Rx Stated complaint: EPS eval Time Seen by Provider: 06/28/18 12:51 Source: patient, family, RN notes reviewed Mode of arrival: ambulatory Limitations: no limitations - History of Present Illness Initial comments: 23-year-old male with a past medical history of seizure disorder, autism pr esents to the emergency department for multiple complaints. Patient was initially sent to the emergency department due to suicidal thoughts. Patient apparently told his doctor he just wants to and no longer wants to live. Patient does admit to suicidal thoughts. He states he is here because of the pain he is in due to his wrist. Mother would also like him evaluated due to his wrist pain. Patient has been evaluated by multiple specialists and primary care. Patient had an echocardiogram as well as an arterial Doppler. These were normal. Patient also had an MRI of the head and neck which were normal. Patient has an EMG scheduled in one week. No fevers. Patient states he cannot move his right wrist. It is too painful. The symptoms have been going on for over one month. The symptoms started in bilateral hands and to continue to be in the left hand as well but right hand is much worse.Patient has no other complaints at this time including shortness of breath, chest pain, abdominal pain, nausea or vomiting, headache, or visual changes. - Related Data Home Medications Medication Instructions Recorded Confirmed Verapamil HCl 120 mg PO DAILY 06/01/18 06/28/18 HYDROcodone/APAP 7.5-325MG [[place] 1 tab PO Q6HR PRN 06/28/18 06/28/18 7.5-325] Topiramate [Topamax] 50 mg PO BID 06/28/18 06/28/18 Allergies Allergy/AdvReac Type Severity Reaction Status Date / Time No Known Allergies Allergy Verified 06/28/18 12:46 Review of Systems ROS Statement: Those systems with pertinent positive or pertinent negative responses have been documented in the HPI. ROS Other: All systems not noted in ROS Statement are negative. Past Medical History Past Medical History: Seizure Disorder Additional Past Medical History / Comment(s): one previous seizure in 2007, mild cognitive impairment History of Any Multi-Drug Resistant Organisms: None Reported Additional Past Surgical History / Comment(s): eye surgeries Past Psychological History: No Psychological Hx Reported Smoking Status: Never smoker Past Alcohol Use History: None Reported Past Drug Use History: None Reported General Exam Limitations: no limitations General appearance: alert, in no apparent distress Head exam: Present: atraumatic, normocephalic, normal inspection Eye exam: Present: normal appearance, PERRL, EOMI. Absent: scleral icterus, co njunctival injection, periorbital swelling ENT exam: Present: normal exam, mucous membranes moist Neck exam: Present: normal inspection, full ROM. Absent: tenderness, meningismus, lymphadenopathy Respiratory exam: Present: normal lung sounds bilaterally. Absent: respiratory distress, wheezes, rales, rhonchi, stridor Cardiovascular Exam: Present: regular rate, normal rhythm, normal heart sounds. Absent: systolic murmur, diastolic murmur, rubs, gallop, clicks Extremities exam: Present: tenderness (Generalized tenderness in the right hand and wrist. No tenderness to the proximal forearm elbow or shoulder joint), normal capillary refill (Capillary refill less than 2 seconds, radial pulse 2+.), other (Patient does have minimal erythema with some warmth noted to the dorsal right wrist. No signs of infection or cellulitis.). Absent: full ROM (Patient holds her right wrist in a fully flexed position) Neurological exam: Present: alert, oriented X3, CN II-XII intact Psychiatric exam: Present: normal affect, normal mood Course Vital Signs 06/28/18 06/28/18 06/28/18 12:26 15:35 18:13 Temperature 98.4 F 98.5 F 97.8 F Pulse Rate 124 H 88 110 H Respiratory 20 18 20 Rate Blood Pressure 127/86 137/69 129/90 O2 Sat by Pulse 98 98 99 Oximetry Medical Decision Making - Medical Decision Making 23-year-old male presents to the emergency department for a chief complaint of right wrist pain and suicidal thoughts. Wrist pain has been evaluated multiple times by specialists, patient has EMG scheduled in one week. Blood work and x- ray were unremarkable. Patient was also evaluated by EPS due to suicidal remarks. EPS clears patient for discharge. Patient was given outpatient resources. On reevaluation stating his pain is significantly improved and he is no longer having suicidal thoughts. He will follow up with primary care and return here for any worsening symptoms. - Lab Data Result diagrams: 06/28/18 13:32 06/28/18 13:32 Lab Results 06/28/18 06/28/18 06/28/18 Range/Units 13:30 13:32 13:32 WBC 8.7 (3.8-10.6) k/uL RBC 5.31 (4.30-5.90) m/uL Hgb 16.6 (13.0-17.5) gm/dL Hct 47.4 (39.0-53.0) % MCV 89.3 (80.0-100.0) fL MCH 31.2 (25.0-35.0) pg MCHC 35.0 (31.0-37.0) g/dL RDW 12.7 (11.5-15.5) % Plt Count 346 (150-450) k/uL Neutrophils % 79 % Lymphocytes % 13 % Monocytes % 5 % Eosinophils % 1 % Basophils % 1 % Neutrophils # 6.9 (1.3-7.7) k/uL Lymphocytes # 1.1 (1.0-4.8) k/uL Monocytes # 0.5 (0-1.0) k/uL Eosinophils # 0.1 (0-0.7) k/uL Basophils # 0.1 (0-0.2) k/uL Sodium 141 (137-145) mmol/L Potassium 3.7 (3.5-5.1) mmol/L Chloride 106 (98-107) mmol/L Carbon Dioxide 26 (22-30) mmol/L Anion Gap 9 mmol/L BUN 10 (9-20) mg/dL Creatinine 0.80 (0.66-1.25) mg/dL Est GFR (CKD-EPI)AfAm >90 (>60 ml/min/1.73 sqM) Est GFR (CKD-EPI)NonAf >90 (>60 ml/min/1.73 sqM) Glucose 84 (74-99) mg/dL Uric Acid 5.4 (3.5-8.5) mg/dL Calcium 9.9 (8.4-10.2) mg/dL Total Bilirubin 0.9 (0.2-1.3) mg/dL AST 21 (17-59) U/L ALT 35 (21-72) U/L Alkaline Phosphatase 71 (38-126) U/L Total Protein 7.2 (6.3-8.2) g/dL Albumin 4.7 (3.5-5.0) g/dL Urine Color Yellow Urine Appearance Cloudy (Clear) Urine pH 7.5 (5.0-8.0) Ur Specific [place] 1.010 (1.001-1.035) Urine Protein Negative (Negative) Urine Glucose (UA) Negative (Negative) Urine Ketones Negative (Negative) Urine Blood Negative (Negative) Urine Nitrite Negative (Negative) Urine Bilirubin Negative (Negative) Urine Urobilinogen <2.0 (<2.0) mg/dL Ur Leukocyte Esterase Negative (Negative) Amorphous Sediment Rare H (None) /hpf Hyaline Casts 5 H (0-2) /lpf Urine Mucus Occasional H (None) /hpf Urine Opiates Screen Not Detected (NotDetected) Ur Oxycodone Screen Not Detected (NotDetected) Urine Methadone Screen Not Detected (NotDetected) Ur Propoxyphene Screen Not Detected (NotDetected) Ur Barbiturates Screen Not Detected (NotDetected) U Tricyclic Antidepress Not Detected (NotDetected) Ur Phencyclidine Scrn Not Detected (NotDetected) Ur Amphetamines Screen Not Detected (NotDetected) U Methamphetamines Scrn Not Detected (NotDetected) U Benzodiazepines Scrn Not Detected (NotDetected) Urine Cocaine Screen Not Detected (NotDetected) U Marijuana (THC) Screen Not Detected (NotDetected) Serum Alcohol <10 mg/dL Disposition Clinical Impression: Wrist pain, Situational depression Disposition: HOME SELF-CARE Condition: Good Instructions (If sedation given, give patient instructions): Depression (DC) Additional Instructions: Based follow-up with primary care in 1-2 days. Continue to take home pain medications for pain. He may take Motrin as well. Return here to the emergency department if you've any worsening symptoms. Is patient prescribed a controlled substance at d/c from ED?: No Referrals: Ajay Pavon DO [Primary Care Provider] - 1-2 days Time of Disposition: 18:00
[2018-06-28] MEDS ORDERED: DIAZEPAM 5 MG/ML 2 ML INJ IVP STA (13:25)
[2018-06-28 13:59] LABS: ALT 35 U/L (21-72); AST 21 U/L (17-59); Albumin 4.7 g/dL (3.5-5.0); Alcohol <10 mg/dL; Alkaline Phosphatase 71 U/L (38-126); Anion Gap 9 mmol/L; Blood Urea Nitrogen 10 mg/dL (9-20); Calcium 9.9 mg/dL (8.4-10.2); Carbon Dioxide 26 mmol/L (22-30); Chloride 106 mmol/L (98-107); Glucose 84 mg/dL (74-99); Potassium 3.7 mmol/L (3.5-5.1); Sodium 141 mmol/L (137-145); Total Bilirubin 0.9 mg/dL (0.2-1.3); Total Protein 7.2 g/dL (6.3-8.2); Uric Acid 5.4 mg/dL (3.5-8.5)
[2018-06-28 14:05] LABS: Amorphous Sediment,Urine Rare /hpf; Appearance,Urine Cloudy (Clear); Bilirubin,Urine Negative (Negative); Blood,Urine Negative (Negative); Color,Urine Yellow; Glucose,Urine (UA) Negative (Negative); Hyaline Casts,Urine 5 /lpf (0-2); Ketones,Urine Negative (Negative); Leukocyte Esterase,Urine Negative (Negative); Mucus,Urine Occasional /hpf; Nitrite,Urine Negative (Negative); PH, Urine 7.5 (5.0-8.0); Protein,Urine Negative (Negative); Urobilinogen,Urine <2.0 mg/dL (<2.0)
[2018-06-28 14:11] LABS: Basophils # (A) 0.1 k/uL (0-0.2); Basophils % (A) 1 %; Eosinophils # (A) 0.1 k/uL (0-0.7); Eosinophils % (A) 1 %; HCT 47.4 % (39.0-53.0); HGB 16.6 gm/dL (13.0-17.5); Lymphocytes # (A) 1.1 k/uL (1.0-4.8); Lymphocytes % (A) 13 %; MCH 31.2 pg (25.0-35.0); MCV 89.3 fL (80.0-100.0); Monocytes # (A) 0.5 k/uL (0-1.0); Monocytes % (A) 5 %; Neutrophils # (A) 6.9 k/uL (1.3-7.7); Neutrophils % (A) 79 %; Platelet Count 346 k/uL (150-450); RBC 5.31 m/uL (4.30-5.90); RDW 12.7 % (11.5-15.5); WBC 8.7 k/uL (3.8-10.6)
[2018-06-28 14:12] LABS: Amphetamine Screen,Urine Not Detected (NotDetected); Barbiturate Screen,Urine Not Detected (NotDetected); Benzodiazepines Screen,Urine Not Detected (NotDetected); Cocaine Screen,Urine Not Detected (NotDetected); Methadone Screen, Urine Not Detected (NotDetected); Opiate Screen,Urine Not Detected (NotDetected); Oxycodone Screen, Urine Not Detected (NotDetected); Phencyclidine Screen,Urine Not Detected (NotDetected); Tricyclic Antidepressant,Urine Not Detected (NotDetected); Urn Cannabinoid Scrn Not Detected (NotDetected)
--- NOTE | 2018-06-28 14:27 | XR ---
Limited right wrist and right hand HISTORY: Pain 2 views of the right hand and 2 views of the right wrist There is a flexion deformity of the wrist. Nonstandard views. No evident fracture or dislocation. IMPRESSION: Limited exam. No acute abnormality evident. Nonstandard views.
[2018-06-28 18:15] VITALS: BP 129/90; PULSE 110; RESP 20; TEMP 97.8
== END 2018-06-28 18:13 | disposition home or self-care (01) ==
LOC: EC 12:13
DX: F43.21 Adjustment disorder with depressed mood (principal); M25.531 Pain in right wrist; M79.642 Pain in left hand; M79.641 Pain in right hand; G40.909 Epilepsy, unspecified, not intractable, without status epilepticus; Z79.899 Other long term (current) drug therapy
CPT/HCPCS: 36415; 80053; 84550; 85025; 81001; 80306; 73100; 73120; 99284; 96374; 96375; G0480; J3360; J1885; 80320

== ENCOUNTER → 2018-07-18 | Outpatient (CLI) | payer MEDICARE ==
--- NOTE | 2018-07-18 14:26 | MR ---
MR right brachial plexus with and without contrast HISTORY: Complex situs, radiculopathy Multiplanar multisequence and postcontrast images obtained through the right brachial plexus followin g 6.5 cc Gadavist IV. No comparisons There is motion artifact on the exam which limits evaluation. Visualized cervical and upper thoracic vertebral is maintained. No evident foraminal encroachment. No spinal stenosis. No evident nerve root mass. Brachioplexus shows an unremarkable appearance as visualized. No abnormal enhancement followin g contrast administration. There is no evident lung abnormality at the apex or regional soft tissues. IMPRESSION: There are artifacts, motion on the exam however no abnormality evident to account for pat ient's symptoms.
--- NOTE | 2018-07-19 09:00 | MR ---
EXAMINATION TYPE: MR cervical spine w con DATE OF EXAM: 07/18/2018 COMPARISON: HISTORY: Plexistis / radiculopathy, RSD in right hand and arm CONTRAST: Performed utilizing 6.5 mL intravenous Gadavist gadolinium contrast. TECHNIQUE: Multiplanar multiecho imaging on a 3.0 Aliya magnet is performed through the cervical spin e. FINDINGS: The craniovertebral junction is normal. Vertebral body alignment is normal. Motion artifac t is present during the exam. C3-C4: There is a tiny central disc protrusion may have minimal anterior thecal sac contact. No AP sp inal canal stenosis present. No cord contact centrally. Neural foramen are patent. Remaining disc levels appear unremarkable without focal disc herniation or significant disc bulge. Sp inal canal stenosis or neural foraminal stenosis. Exam is limited to axial and sagittal postcontrast imaging. Comparison is made with the noncontrast MRI study performed water open MRI labeled with the patient's name dated 06/11/2018. IMPRESSIONS: 1. Small central protrusion may be present C3-4 without significant thecal sac compression. 2. No suspicious enhancement.
== END | disposition home or self-care (01) ==
LOC: RADMRIMAIN 12:37
PROVIDERS: ATTEND Psychiatry & Neurology Neurology
DX: M54.12 Radiculopathy, cervical region (principal); G54.0 Brachial plexus disorders
CPT/HCPCS: 72142; 71552; A9585

== ENCOUNTER → 2018-07-19 | Outpatient (CLI) | payer MEDICARE ==
[2018-07-19 11:57] VITALS: BP 156/95; PULSE 95; RESP 16
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
== END ==
LOC: PNWHC3 11:34
PROVIDERS: ATTEND Hospitalist
DX: G90.511 Complex regional pain syndrome I of right upper limb (principal)
CPT/HCPCS: 99211

== ENCOUNTER 2018-07-25 07:21 | Day surgery (SDC) | payer MEDICARE ==
[2018-07-24 11:18] VITALS: BMI 19.3
[2018-07-25 07:44] VITALS: RESP 16; TEMP 97.9
[2018-07-25] MEDS ORDERED: LACTATED RINGERS 1,000 ML IV ONE (07:52)
[2018-07-25] MEDS ORDERED: LIDOCAINE 1% 20 ML VIAL (10MG/ML) FOR IV START INTRADERMA ONE (07:53)
--- NOTE | 2018-07-25 09:04 | P.PCN ---
Date of Procedure: 07/25/18 Surgeon: Brandy Duque Pathology: none sent Condition: stable Disposition: PACU Description of Procedure: PROCEDURES: Right Stellate ganglion block with ultrasound guidance. PREOPERATIVE DIAGNOSIS: 1- RUE CRPS (type I) POSTOPERATIVE DIAGNOSIS: Same ANESTHESIA: 1% lidocaine plain; conscious sedation with 2 mg of Versed only EBL: None. COMPLICATIONS: None. INDICATION: The patient presents long history of signs and symptoms suggestive of CRPS of the right arm, presents today for right stellate ganglion block, #1 in this series. Patient has had inability to do physical therapy due to pain and presents for SGB today. No use of blood thinners. PROCEDURE DESCRIPTION: The patient was seen and identified in the preoperative area. Risks, benefits, complications, and alternatives were discussed with the patient, with risks including but not limited to hoarseness, local anesthetic toxicity, bleeding, infection, nerve damage, allergic reactions to medications, and incomplete pain relief. The patient agreed to proceed with the procedure and signed the informed consent after all questions were answered. IV was started and vital signs were stable. Patient was brought to the procedure room and placed in the supine position with a shoulder roll to improve extension of the neck. Cervical area anteriorly was prepped and draped in the usual sterile fashion with focus on the right side of the neck. Using a linear ultrasound probe and sterile cover, the thyroid gland and carotid artery were identified, as was the vertebral artery. The ultrasound was moved cephalad to identify the Maicol saignac's tubercle . signifying the C6 level. Then the probe was moved caudad to C7 level. After in-plane localization with 2 ml of 1% lidocaine plain, a 25 gauge 1.5 inch needle was directed behind the carotid artery and anterior to the longus coli muscle. After negative aspiration for CSF or blood and in the absence of paresthesias, solution was injected incrementally with frequent aspiration anterior to the longus colli muscle. Block solution contained 10 mL of 0.5% Ropivacaine preservative free . Needle was removed intact, skin was cleansed, and bandages were applied. COMPLICATIONS: None. The patient tolerated the procedure well without complications and had excellent pain relief immediately after the procedure, along with warmth in his right upper extremity. After re-examination, she was discharged home after the procedure after he met all discharge criteria. he was instructed not to eat before 4 hours postprocedure. She will go to physical therapy today and will be seen in the clinic in a few weeks.
[2018-07-25] MEDS ORDERED: IV FLUID CONTINUATION 1,000 ML IV ONE ×2 (09:10)
[2018-07-25 09:30] VITALS: BP 150/88; PULSE 80
== END 2018-07-25 09:41 | disposition home or self-care (01) ==
LOC: ORPAIN 07:21 → EDSTATUS 08:30 → ORPAIN 09:41
PROVIDERS: ATTEND Anesthesiology
DX: G56.41 Causalgia of right upper limb (principal); G40.909 Epilepsy, unspecified, not intractable, without status epilepticus; F41.9 Anxiety disorder, unspecified
CPT/HCPCS: 64510; J2250; 99152

== ENCOUNTER 2018-08-08 07:49 | Day surgery (SDC) | payer MEDICARE ==
[2018-08-07 09:23] VITALS: BMI 19.3
[~2018-08-08 07:49] MED LIST: LACTATED RINGERS 1,000 ML IV SCH
[2018-08-08 08:16] VITALS: TEMP 97.3
[2018-08-08] MEDS ORDERED: LIDOCAINE 1% 20 ML VIAL (10MG/ML) FOR IV START INTRADERMA ONE (08:25)
--- NOTE | 2018-08-08 08:54 | P.PCN ---
Date of Procedure: 08/08/18 Surgeon: Miguel London Description of Procedure: Preoperative diagnosis: Right upper extremity complex regional pain syndrome Postoperative diagnosis: Same Indication for procedure: This is a very pleasant 23-year-old gentleman with a history of complex regional pain syndrome of the right upper extremity and wrist after a trauma. He presents today for repeat of stellate ganglion blockade. He reports good relief of his pain and increased ability to participate in physical therapy after his last stellate ganglion block. Procedure: Right Stellate ganglion block with fluoroscopy Anesthesia: Local skin anesthetic with 1% lidocaine and 1 mg of Versed and 50 g of fentanyl Surgeon: Miguel London M.D. Procedure in detail: After potential risks and benefits were reviewed with the patient and their family, patient signed an informed consent and was then transported to the operating room suite. The patient was positioned on the procedure table in the supine position. Standard monitors were applied. Intravenous access was confirmed. The area over the contralateral C7 transverse process was prepped and draped in the usual sterile fashion. Local anesthetic was applied to the skin and subcutaneous tissue. Under fluoroscopic guidance, a 25-gauge 3-1/2 inch spinal needle was advanced through the skin and subcutaneous tissue until the needle contacted the transverse process of the C7 vertebral body. The needle was withdrawn approximately 1 mm. After negative aspiration, radio opaque dye was injected. An acceptable spread pattern was witnessed. Then, a solution containing 5cc of 0.5% marcaine was injected. This was done with incremental aspiration. The needle was then withdrawn intact and a bandage was applied. The patient was transported to the recovery room in stable condition. He was monitored and then discharged home with a pick up driver. follow-up: Patient will follow up for repeat of this procedure on an as-needed basis. I discussed this with his mother. As long as he can participate in physical therapy fully,he should hold off on further procedures. If he cannot dissipate in physical therapy due to pain, he should be scheduled for a repeat of procedure.
[2018-08-08] MEDS ORDERED: IV FLUID CONTINUATION 1,000 ML IV ONE (09:03)
[2018-08-08 09:06] VITALS: RESP 16
[2018-08-08] MEDS ORDERED: ONDANSETRON 4 MG/2 ML VIAL IVP ONE (09:13)
[2018-08-08 09:22] VITALS: BP 117/78; PULSE 70
--- NOTE | 2018-08-08 11:00 | FL ---
Fluoroscopy HISTORY: Pain 3 seconds fluoroscopy time supplied to the referring clinician. 1 intraoperative C-arm images docume nt the procedure. See dictated report from anesthesia.
== END 2018-08-08 09:30 | disposition home or self-care (01) ==
LOC: ORPAIN 07:49
PROVIDERS: ATTEND Pain Medicine Pain Medicine
DX: G90.511 Complex regional pain syndrome I of right upper limb (principal); G40.909 Epilepsy, unspecified, not intractable, without status epilepticus; G31.84 Mild cognitive impairment of uncertain or unknown etiology
CPT/HCPCS: 64510; J2250; J2405; Q9966

== ENCOUNTER 2018-12-07 19:35 | Emergency (ER) | payer MEDICARE ==
[2018-12-07 19:42] VITALS: RESP 20
[2018-12-07] MEDS ORDERED: METHOCARBAMOL 750 MG TAB PO PRN (19:52)
[2018-12-07 21:06] LABS: Amphetamine Screen,Urine Not Detected (NotDetected); Barbiturate Screen,Urine Not Detected (NotDetected); Benzodiazepines Screen,Urine Not Detected (NotDetected); Cocaine Screen,Urine Not Detected (NotDetected); Methadone Screen, Urine Not Detected (NotDetected); Opiate Screen,Urine Not Detected (NotDetected); Oxycodone Screen, Urine Not Detected (NotDetected); Phencyclidine Screen,Urine Not Detected (NotDetected); Tricyclic Antidepressant,Urine Not Detected (NotDetected); Urn Cannabinoid Scrn Not Detected (NotDetected)
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
[2018-12-07 22:32] VITALS: BP 148/98; PULSE 78; TEMP 97.8
== END 2018-12-07 22:32 | disposition home or self-care (01) ==
LOC: EC 19:35
DX: Z04.1 Encounter for examination and observation following transport accident (principal); F41.9 Anxiety disorder, unspecified; Z79.899 Other long term (current) drug therapy
CPT/HCPCS: 80306; 82075; 99284

== ENCOUNTER 2019-11-24 13:23 | Emergency (ER) | payer MEDICARE ==
[2019-11-24 13:33] VITALS: BP 129/94; PULSE 79; RESP 18; TEMP 99
--- NOTE | 2019-11-24 13:54 | ED ---
Allergic Reaction HPI - General Chief complaint: Allergic Reaction Stated complaint: wasp sting lt hand Time Seen by Provider: 11/24/19 13:34 Source: patient Mode of arrival: ambulatory Limitations: no limitations - History of Present Illness Initial Comments: 24-year-old male who was stung by a bee on November 21 presented Diann Neto increasing left hand swelling. He states he was bit on the dorsum of his left hand. He is accompanied by mother who states that this is what had happened. She states that there is swelling that occurred immediately after she states that every morning the swelling seems to increase. She states that there is redness and warmth. She stated the patient is highly ALLERGIC to bee stings and this happens with mosquito bites as well but seems increased from usual patient denies any significant pain denies any limitations in range motion of the finger or pain with passive flexion to the finger. Denies fevers, chills, general malaise. Patient has no additional complaints. Patient appears well on arrival nontoxic. History obtained from both mother and patient. - Related Data Home Medications Medication Instructions Recorded Confirmed Multivitamin [Multivitamins Adult 2 tab PO DAILY 12/07/18 12/07/18 Gummies] PARoxetine HCL [Paxil] 10 mg PO DAILY 12/07/18 12/07/18 Previous Rx's Medication Instructions Recorded Cephalexin [Keflex] 500 mg PO Q6HR 7 Days #28 cap 11/24/19 Sulfamethox-Tmp 800-160Mg [Bactrim 1 tab PO Q12HR 7 Days #14 tab 11/24/19 DS 800-160 mg] Allergies Allergy/AdvReac Type Severity Reaction Status Date / Time bee venom protein (honey bee) Allergy Swelling Verified 11/24/19 13:29 Review of Systems ROS Statement: Those systems with pertinent positive or pertinent negative responses have been documented in the HPI. ROS Other: All systems not noted in ROS Statement are negative. Past Medical History Past Medical History: Seizure Disorder Additional Past Medical History / Comment(s): Mom states she is John's legal guradian and will be coming with him to procedure. Mom states was "having these spells, a couple of times where John falls to his knees and states I feel like I don't have a brain and my eyes are shrinking," but has not had any since [facility]. Right hand and wrist pain. Hx one previous seizure in 2007. Mild cognitive impairment. Mom states thinks he may be having panic attacks. History of Any Multi-Drug Resistant Organisms: None Reported Additional Past Surgical History / Comment(s): Eye surgeries, pain clinic procedures. Past Anesthesia/Blood Transfusion Reactions: No Reported Reaction, Family History of Problems w/ Anesthesia Additional Past Anesthesia/Blood Transfusion Reaction / Comment(s): Mom has hx PONV. Past Psychological History: Anxiety Past Alcohol Use History: None Reported Past Drug Use History: None Reported - Past Family History Mother Family Medical History: No Reported History General Exam - General Exam Comments Initial Comments: General: The patient is awake and alert, in no distress Eye: +3 mm pupils are equal, round and reactive to light, extra-ocular movements are intact. No nystagmus. There is normal conjunctiva bilaterally. No signs of icterus. Ears, nose, mouth and throat: There are moist mucous membranes and no oral lesions. Neck: The neck is supple, there is no tenderness or JVD. Musculoskeletal: Normal ROM, no tenderness. Strength 5/5. Sensation intact. Radial pulses equal bilaterally 2+. Neurological: A&O x 3. CN II-XII intact, There are no obvious motor or sensory deficits. Coordination appears grossly intact. Speech is normal. Skin: Skin is warm and dry and no rashes. Significant redness to the dorsum of the left hand, no pain with active or passive flexion of the digits of the affected hand. There is warmth redness, no drainage. Patient denies pain when the area is palpated. Psychiatric: Cooperative, appropriate mood & affect, normal judgment. Limitations: no limitations Course Vital Signs 11/24/19 13:29 Temperature 99 F Pulse Rate 79 Respiratory 18 Rate Blood Pressure 129/94 O2 Sat by Pulse 99 Oximetry Medical Decision Making - Medical Decision Making 34-year-old male presented with mother for chief complaint of left hand swelling after wasp sting. allergic to bees. patient denies difficulty breathing entire bidy rash, diarrhea, vomiting. Mother states he just swelling. significant hand swelling on the dorsum near bite. Patient has warmth to palpation. No drainage. No fevers, or constitutional symptoms. No fusiform swelling of the digit or pain with passive flexion. Patient will be covered to ensure no secondary infection developed on top of the local reaction. Patient case discussed with Dr. Luong who is agreeable to care plan and discharge. Disposition Clinical Impression: Wasp sting, Swelling of left hand Disposition: HOME SELF-CARE Condition: Good Instructions (If sedation given, give patient instructions): Insect Bite or Sting (ED) Additional Instructions: Please use medication as discussed. Please follow-up with family doctor in the next 2 days. Ice and ELEVATE hand especially at night, monitor for pain, in creasing redness/swelling, fevers. Please return to emergency room if the symptoms increase or worsen or for any other concerns. Prescriptions: Sulfamethox-Tmp 800-160Mg [Bactrim DS 800-160 mg] 1 tab PO Q12HR 7 Days #14 tab Cephalexin [Keflex] 500 mg PO Q6HR 7 Days #28 cap predniSONE 50 mg PO DAILY 3 Days #3 tab Is patient prescribed a controlled substance at d/c from ED?: No Referrals: Ajay Pavon DO [Primary Care Provider] - 1-2 days Time of Disposition: 13:54
== END 2019-11-24 14:02 | disposition home or self-care (01) ==
LOC: EC 13:23
DX: T63.461A Toxic effect of venom of wasps, accidental (unintentional), initial encounter (principal); T63.441A Toxic effect of venom of bees, accidental (unintentional), initial encounter; F41.9 Anxiety disorder, unspecified; Z79.899 Other long term (current) drug therapy; Z91.030 Bee allergy status
CPT/HCPCS: 99283

== ENCOUNTER 2019-12-31 02:10 | Emergency (ER) | payer MEDICARE ==
--- NOTE | 2019-12-31 02:15 | ED ---
Psych HPI <Keely Preciado - Last Filed: 12/31/19 04:38> <Jose Jc - Last Filed: 12/31/19 13:40> - General Stated Complaint: Mental health Time Seen by Provider: 12/31/19 02:13 - History of Present Illness Initial Comments: John is a very pleasant 24-year-old male with cognitive delay. He has brought to the ER today by his mother with multiple complaints. John reports that over the past few months thinks it just been getting worse. He states that he feels like his nipples are shrinking he feels like his genitalia are shrinking he feels like his eyes have become metal pennies. He states that he lost his ability to smell or taste anything. He denies any recent illness he does have a mild runny nose and nonproductive cough but mom states this is consistent with his usual seasonal ALLERGIES. Patient denies any thoughts of hurting himself or others. But he states he feels like something is wrong with in his body and its controlling him. Mom at bedside reports that starting the summer she noted John seemed to be having some hallucinations. At one point they were staying in a hotel and he reported seeing something similar to a green ghost flying over him, this made him so anxious that had to leave the hotel. She does state that he is under a lot of emotional stress due to his father's advanced Parkinson's. (Keely Preciado) - Related Data Home Medications Medication Instructions Recorded Confirmed No Known Home Medications 12/31/19 12/31/19 Allergies Allergy/AdvReac Type Severity Reaction Status Date / Time bee venom protein (honey bee) Allergy Swelling Verified 12/31/19 09:47 Review of Systems ROS Other: All systems not noted in ROS Statement are negative. <Keely Preciado - Last Filed: 12/31/19 04:38> ROS Other: All systems not noted in ROS Statement are negative. <Jose Jc - Last Filed: 12/31/19 13:40> ROS Statement: Those systems with pertinent positive or pertinent negative responses have been documented in the HPI. Past Medical History Past Medical History: Seizure Disorder Additional Past Medical History / Comment(s): Mom states she is John's legal guradian and will be coming with him to procedure. Mom states was "having these spells, a couple of times where John falls to his knees and states I feel like I don't have a brain and my eyes are shrinking," but has not had any since [facility]. Right hand and wrist pain. Hx one previous seizure in 2007. Mild cognitive impairment. Mom states thinks he may be having panic attacks. History of Any Multi-Drug Resistant Organisms: None Reported Additional Past Surgical History / Comment(s): Eye surgeries, pain clinic procedures. Past Anesthesia/Blood Transfusion Reactions: No Reported Reaction, Family History of Problems w/ Anesthesia Additional Past Anesthesia/Blood Transfusion Reaction / Comment(s): Mom has hx PONV. Past Psychological History: Anxiety Past Alcohol Use History: None Reported Past Drug Use History: None Reported - Past Family History Mother Family Medical History: No Reported History <Keely Preciado - Last Filed: 12/31/19 04:38> General Exam <Keely Preciado - Last Filed: 12/31/19 04:38> - General Exam Comments Initial Comments: Physical Exam GENERAL: Patient is well-developed and well-nourished. Patient is nontoxic and well- hydrated and is in no distress. HENT: Normocephalic, Atraumatic. EYES: Right pupil 5 mm round reactive Left pupil 3 mm round reactive EOMI PULMONARY: Unlabored respirations. No audible rales rhonchi or wheezing was noted. CARDIOVASCULAR: There is a regular rate and rhythm without any murmurs gallops or rubs. ABDOMEN: Soft and nontender with normal bowel sounds. SKIN: Skin is clear with no lesions or rashes and otherwise unremarkable. : Deferred NEUROLOGIC: Patient is alert and oriented x3. Moving all extremities spontaneously MUSCULOSKELETAL: Normal extremities with adequate strength and full range of motion. No lower extremity swelling or edema. No calf tenderness. PSYCHIATRIC: Childlike demeanor No suicidal or homicidal ideation Some apparent obsessions or fixations, concern for hallucinations (Keely Preciado) Course <Jose Jc - Last Filed: 12/31/19 13:40> Vital Signs 12/31/19 12/31/19 02:10 07:27 Temperature 97.6 F Pulse Rate 78 65 Respiratory 18 18 Rate Blood Pressure 127/85 147/90 O2 Sat by Pulse 99 10 L Oximetry - Reevaluation(s) Reevaluation #1: 12/31/19 13:39 The patient was endorsed me at shift change pending EPS evaluation he was evaluated currently is not a risk to himself or anyone else he'll be discharged outpatient treatment. A treatment plan is formulated. (Jose Jc) Medical Decision Making - Lab Data Result diagrams: 12/31/19 02:52 12/31/19 02:52 <Keely Preciado - Last Filed: 12/31/19 04:38> - Lab Data Result diagrams: 12/31/19 02:52 12/31/19 02:52 <Jose Jc - Last Filed: 12/31/19 13:40> - Medical Decision Making The patient was seen and evaluated history is obtained from the patient and mother This is a 24-year-old male with a very childlike demeanor and cognitive delay mom brought him to the ER today because she feels he has some mental illness, she states that he has started hallucinating seeing what he describes as ghosts that time. He also seems to be fixated on a paranoia that his nipples and genitals are shrinking and that his eyes are turning in the middle though he's had no change in his vision. He does seem very anxious about these things. Patient does report a loss of taste or smell this doesn't seem to be acute he has no known sick contacts he primarily lives at home does not socialize with an ybody besides his mother and father. No one else in the home is sick. Physical exam did reveal anisocoria, mother does state that the patient had an eye surgery when he was young but she is never noted that his pupils are unequal and that today she noted that both his pupils seemed to be very dilated Given the acute onset of hallucinations and personality changes a computed tomography scan of the head will be obtained as well as labs Labs and computed tomography scan are unremarkable At this time I do feel the patient and mother would benefit from evaluation by emergency psychiatric services, I do feel patient would benefit from an intense outpatient therapy, possibly anti-depressant or antipsychotic medications. I do not feel the patient would benefit from inpatient psychiatric care as I do feel an adult psychiatric facility would be overwhelming, intimidating and generally traumatizing for this patient. Patient is medically cleared for evaluation by EPS however they are not kerri ilable overnight and patient will be evaluated in the morning. Mother left the hospital around 4 AM will return 11 AM for evaluation. Patient care will be signed out to Dr. Jc at 8 AM ending patient's evaluation by EPS I do suspect the patient will be stable for discharge home with an outpatient psychiatric care plan (Keely Preciado) - Lab Data Lab Results 12/31/19 12/31/19 12/31/19 Range/Units 02:52 02:52 02:52 WBC 7.4 (3.8-10.6) k/uL RBC 5.29 (4.30-5.90) m/uL Hgb 15.8 (13.0-17.5) gm/dL Hct 47.6 (39.0-53.0) % MCV 89.9 (80.0-100.0) fL MCH 29.9 (25.0-35.0) pg MCHC 33.3 (31.0-37.0) g/dL RDW 12.7 (11.5-15.5) % Plt Count 302 (150-450) k/uL Neutrophils % 64 % Lymphocytes % 26 % Monocytes % 5 % Eosinophils % 2 % Basophils % 1 % Neutrophils # 4.7 (1.3-7.7) k/uL Lymphocytes # 1.9 (1.0-4.8) k/uL Monocytes # 0.4 (0-1.0) k/uL Eosinophils # 0.1 (0-0.7) k/uL Basophils # 0.1 (0-0.2) k/uL D-Dimer (<0.60) mg/L FEU Sodium 141 (137-145) mmol/L Potassium 3.7 (3.5-5.1) mmol/L Chloride 103 (98-107) mmol/L Carbon Dioxide 29 (22-30) mmol/L Anion Gap 9 mmol/L BUN 14 (9-20) mg/dL Creatinine 0.90 (0.66-1.25) mg/dL Est GFR (CKD-EPI)AfAm >90 (>60 ml/min/1.73 sqM) Est GFR (CKD-EPI)NonAf >90 (>60 ml/min/1.73 sqM) Glucose 103 H (74-99) mg/dL Calcium 8.9 (8.4-10.2) mg/dL Ferritin 108.4 (22.0-322.0) ng/mL Total Bilirubin 0.7 (0.2-1.3) mg/dL AST 34 (17-59) U/L ALT 29 (4-49) U/L Alkaline Phosphatase 79 (38-126) U/L Lactate Dehydrogenase 492 (313-618) U/L Total Protein 7.0 (6.3-8.2) g/dL Albumin 4.5 (3.5-5.0) g/dL Urine Color Yellow Urine Appearance Turbid (Clear) Urine pH 6.5 (5.0-8.0) Ur Specific [place] 1.026 (1.001-1.035) Urine Protein Trace H (Negative) Urine Glucose (UA) Negative (Negative) Urine Ketones 1+ H (Negative) Urine Blood Negative (Negative) Urine Nitrite Negative (Negative) Urine Bilirubin Negative (Negative) Urine Urobilinogen 2.0 (<2.0) mg/dL Ur Leukocyte Esterase Negative (Negative) Urine RBC 1 (0-5) /hpf Urine WBC 5 (0-5) /hpf Ur Squamous Epith Cells <1 (0-4) /hpf Amorphous Sediment Rare H (None) /hpf Urine Mucus Few H (None) /hpf Salicylates <1.0 mg/dL Urine Opiates Screen Not Detected (NotDetected) Ur Oxycodone Screen Not Detected (NotDetected) Urine Methadone Screen Not Detected (NotDetected) Ur Propoxyphene Screen Not Detected (NotDetected) Acetaminophen <10.0 ug/mL Ur Barbiturates Screen Not Detected (NotDetected) U Tricyclic Antidepress Not Detected (NotDetected) Ur Phencyclidine Scrn Not Detected (NotDetected) Ur Amphetamines Screen Not Detected (NotDetected) U Methamphetamines Scrn Not Detected (NotDetected) U Benzodiazepines Scrn Not Detected (NotDetected) Urine Cocaine Screen Not Detected (NotDetected) U Marijuana (THC) Screen Not Detected (NotDetected) Serum Alcohol <10 mg/dL 12/31/19 Range/Units 03:21 WBC (3.8-10.6) k/uL RBC (4.30-5.90) m/uL Hgb (13.0-17.5) gm/dL Hct (39.0-53.0) % MCV (80.0-100.0) fL MCH (25.0-35.0) pg MCHC (31.0-37.0) g/dL RDW (11.5-15.5) % Plt Count (150-450) k/uL Neutrophils % % Lymphocytes % % Monocytes % % Eosinophils % % Basophils % % Neutrophils # (1.3-7.7) k/uL Lymphocytes # (1.0-4.8) k/uL Monocytes # (0-1.0) k/uL Eosinophils # (0-0.7) k/uL Basophils # (0-0.2) k/uL D-Dimer 0.21 (<0.60) mg/L FEU Sodium (137-145) mmol/L Potassium (3.5-5.1) mmol/L Chloride (98-107) mmol/L Carbon Dioxide (22-30) mmol/L Anion Gap mmol/L BUN (9-20) mg/dL Creatinine (0.66-1.25) mg/dL Est GFR (CKD-EPI)AfAm (>60 ml/min/1.73 sqM) Est GFR (CKD-EPI)NonAf (>60 ml/min/1.73 sqM) Glucose (74-99) mg/dL Calcium (8.4-10.2) mg/dL Ferritin (22.0-322.0) ng/mL Total Bilirubin (0.2-1.3) mg/dL AST (17-59) U/L ALT (4-49) U/L Alkaline Phosphatase (38-126) U/L Lactate Dehydrogenase (313-618) U/L Total Protein (6.3-8.2) g/dL Albumin (3.5-5.0) g/dL Urine Color Urine Appearance (Clear) Urine pH (5.0-8.0) Ur Specific [place] (1.001-1.035) Urine Protein (Negative) Urine Glucose (UA) (Negative) Urine Ketones (Negative) Urine Blood (Negative) Urine Nitrite (Negative) Urine Bilirubin (Negative) Urine Urobilinogen (<2.0) mg/dL Ur Leukocyte Esterase (Negative) Urine RBC (0-5) /hpf Urine WBC (0-5) /hpf Ur Squamous Epith Cells (0-4) /hpf Amorphous Sediment (None) /hpf Urine Mucus (None) /hpf Salicylates mg/dL Urine Opiates Screen (NotDetected) Ur Oxycodone Screen (NotDetected) Urine Methadone Screen (NotDetected) Ur Propoxyphene Screen (NotDetected) Acetaminophen ug/mL Ur Barbiturates Screen (NotDetected) U Tricyclic Antidepress (NotDetected) Ur Phencyclidine Scrn (NotDetected) Ur Amphetamines Screen (NotDetected) U Methamphetamines Scrn (NotDetected) U Benzodiazepines Scrn (NotDetected) Urine Cocaine Screen (NotDetected) U Marijuana (THC) Screen (NotDetected) Serum Alcohol mg/dL Disposition Is patient prescribed a controlled substance at d/c from ED?: No <Keely Preciado - Last Filed: 12/31/19 04:38> Is patient prescribed a controlled substance at d/c from ED?: No <Jose Jc - Last Filed: 12/31/19 13:40> Clinical Impression: Acute anxiety Disposition: HOME SELF-CARE Condition: Good Instructions (If sedation given, give patient instructions): Anxiety (ED), Mood Disorders (ED) Referrals: Ajay Pavon DO [Primary Care Provider] - 1-2 days
[2019-12-31 02:16] VITALS: RESP 18
[2019-12-31 03:32] LABS: Basophils # (A) 0.1 k/uL (0-0.2); Basophils % (A) 1 %; Eosinophils # (A) 0.1 k/uL (0-0.7); Eosinophils % (A) 2 %; HCT 47.6 % (39.0-53.0); HGB 15.8 gm/dL (13.0-17.5); Lymphocytes # (A) 1.9 k/uL (1.0-4.8); Lymphocytes % (A) 26 %; MCH 29.9 pg (25.0-35.0); MCHC 33.3 g/dL (31.0-37.0); MCV 89.9 fL (80.0-100.0); Mean Platelet Volume 7.8; Monocytes # (A) 0.4 k/uL (0-1.0); Monocytes % (A) 5 %; Neutrophils # (A) 4.7 k/uL (1.3-7.7); Neutrophils % (A) 64 %; Platelet Count 302 k/uL (150-450); RBC 5.29 m/uL (4.30-5.90); RDW 12.7 % (11.5-15.5); WBC 7.4 k/uL (3.8-10.6)
[2019-12-31 03:37] LABS: Amorphous Sediment,Urine Rare /hpf; Appearance,Urine Turbid (Clear); Bilirubin,Urine Negative (Negative); Blood,Urine Negative (Negative); Color,Urine Yellow; Glucose,Urine (UA) Negative (Negative); Ketones,Urine 1+ (Negative); Leukocyte Esterase,Urine Negative (Negative); Mucus,Urine Few /hpf; Nitrite,Urine Negative (Negative); PH, Urine 6.5 (5.0-8.0); Protein,Urine Trace (Negative); RBC,Urine 1 /hpf (0-5); Specific Gravity,Urine 1.026 (1.001-1.035); Squamous Epithelial Cell,Urine <1 /hpf (0-4); WBC,Urine 5 /hpf (0-5)
[2019-12-31 03:44] LABS: ALT 29 U/L (4-49); AST 34 U/L (17-59); Acetaminophen <10.0 ug/mL; African American GFR (CKD) >90 (>60 ml/min/1.73 sqM); Albumin 4.5 g/dL (3.5-5.0); Alcohol <10 mg/dL; Alkaline Phosphatase 79 U/L (38-126); Amphetamine Screen,Urine Not Detected (NotDetected); Anion Gap 9 mmol/L; Barbiturate Screen,Urine Not Detected (NotDetected); Benzodiazepines Screen,Urine Not Detected (NotDetected); Blood Urea Nitrogen 14 mg/dL (9-20); Calcium 8.9 mg/dL (8.4-10.2); Carbon Dioxide 29 mmol/L (22-30); Chloride 103 mmol/L (98-107); Cocaine Screen,Urine Not Detected (NotDetected); Glucose 103 mg/dL (74-99); LDH 492 U/L (313-618); Methadone Screen, Urine Not Detected (NotDetected); Non-African American GFR(CKD) >90 (>60 ml/min/1.73 sqM); Opiate Screen,Urine Not Detected (NotDetected); Oxycodone Screen, Urine Not Detected (NotDetected); Phencyclidine Screen,Urine Not Detected (NotDetected); Potassium 3.7 mmol/L (3.5-5.1); Salicylate <1.0 mg/dL; Sodium 141 mmol/L (137-145); Total Bilirubin 0.7 mg/dL (0.2-1.3); Tricyclic Antidepressant,Urine Not Detected (NotDetected); Urn Cannabinoid Scrn Not Detected (NotDetected)
--- NOTE | 2019-12-31 03:56 | CT ---
EXAMINATION TYPE: CT brain wo con DATE OF EXAM: 12/31/2019 COMPARISON: 02/12/2018 HISTORY: AMS CT DLP: 1231.4 mGycm Automated exposure control for dose reduction was used. Ventricles have normal size. There is no mass effect nor midline shift. There is no sign of intracran ial hemorrhage. Calvarium is intact. There is no evidence of cerebral edema. Skull base is intact. IMPRESSION: Negative CT scan of the brain. No change.
[2019-12-31 09:20] LABS: Ferritin 108.4 ng/mL (22.0-322.0)
[2019-12-31 13:59] VITALS: BP 155/89; PULSE 67; TEMP 97.7
== END 2019-12-31 13:59 | disposition home or self-care (01) ==
LOC: EC 02:10
DX: F41.9 Anxiety disorder, unspecified (principal); H57.02 Anisocoria; R44.3 Hallucinations, unspecified; F07.0 Personality change due to known physiological condition; Z91.030 Bee allergy status
CPT/HCPCS: 36415; 85379; 80053; 82728; 83615; 85025; 81001; 80306; 83520; 70450; 99284; G0480 ×2; U0003; 80320; 80329

== ENCOUNTER 2020-02-25 22:40 | Emergency (ER) | payer MEDICARE ==
[2020-02-25 22:51] VITALS: RESP 18
[2020-02-25] MEDS ORDERED: SODIUM CHLORIDE 0.9% 500 ML 500 ML IV STA (22:56)
--- NOTE | 2020-02-25 23:01 | ED ---
Weakness HPI - General Chief complaint: Weakness Stated complaint: Not feeling well Time Seen by Provider: 02/25/20 22:45 Source: patient, family, EMS Limitations: no limitations - History of Present Illness Initial comments: this patient is 24-year-old man brought by ambulance to be evaluated for loss of appetite and not feeling well. The patient is not able to characterize the symptoms well, stating that he just does not feel well. It is reported that he had a verbal confrontation with family member and then reported to his mother that he was not feeling well. He also did not want to eat this evening which is not usual for him. On review of systems, patient has had a little bit of cough which she states nonproductive otherwise unremarkable ROS MD Complaint: lack of energy -: hour(s) Severity scale (1-10): 0 Consistency: constant Improves with: none Worsens with: none Associated Symptoms: loss of appetite - Related Data Home Medications Medication Instructions Recorded Confirmed No Known Home Medications 12/31/19 02/25/20 Allergies Allergy/AdvReac Type Severity Reaction Status Date / Time bee venom protein (honey bee) Allergy Swelling Verified 02/25/20 23:40 Review of Systems ROS Statement: Those systems with pertinent positive or pertinent negative responses have been documented in the HPI. ROS Other: All systems not noted in ROS Statement are negative. Constitutional: Denies: fever, chills, weakness Eyes: Denies: vision change Respiratory: Reports: cough. Denies: dyspnea Cardiovascular: Denies: chest pain, palpitations Gastrointestinal: Denies: abdominal pain, nausea, vomiting, diarrhea Genitourinary: Denies: dysuria, hematuria, testicular pain Musculoskeletal: Denies: back pain Skin: Denies: rash Neurological: Denies: headache, weakness, numbness Past Medical History Past Medical History: Seizure Disorder Additional Past Medical History / Comment(s): Mom states she is John's legal guradian and will be coming with him to procedure. Mom states was "having these spells, a couple of times where John falls to his knees and states I feel like I don't have a brain and my eyes are shrinking," but has not had any since [facility]. Right hand and wrist pain. Hx one previous seizure in 2007. Mild cognitive impairment. Mom states thinks he may be having panic attacks. History of Any Multi-Drug Resistant Organisms: None Reported Additional Past Surgical History / Comment(s): Eye surgeries, pain clinic procedures. Past Anesthesia/Blood Transfusion Reactions: No Reported Reaction, Family History of Problems w/ Anesthesia Additional Past Anesthesia/Blood Transfusion Reaction / Comment(s): Mom has hx PONV. Past Psychological History: Anxiety Smoking Status: Never smoker Past Alcohol Use History: None Reported Past Drug Use History: None Reported - Past Family History Mother Family Medical History: No Reported History General Exam Limitations: no limitations General appearance: alert, in no apparent distress Head exam: Present: atraumatic, normocephalic Eye exam: Present: normal appearance. Absent: scleral icterus, conjunctival in jection ENT exam: Present: normal oropharynx Neck exam: Present: normal inspection Respiratory exam: Present: normal lung sounds bilaterally. Absent: respiratory distress, wheezes, rales, rhonchi, stridor Cardiovascular Exam: Present: regular rate, normal rhythm, normal heart sounds. Absent: systolic murmur, diastolic murmur, rubs, gallop GI/Abdominal exam: Present: soft. Absent: distended, tenderness, guarding, rebound, rigid Extremities exam: Present: normal inspection, normal capillary refill. Absent: pedal edema, calf tenderness Back exam: Present: normal inspection. Absent: CVA tenderness (R), CVA tenderness (L) Neurological exam: Present: alert Skin exam: Present: warm, dry, intact, normal color. Absent: rash Course Vital Signs 02/25/20 02/25/20 22:48 22:53 Temperature 98.8 F Pulse Rate 70 Respiratory 18 18 Rate Blood Pressure 147/94 O2 Sat by Pulse 98 Oximetry EKG Findings - EKG Results: EKG: interpreted by ERMD, sinus rhythm (rate 69 bpm), normal QRS, normal ST/T - Blocks, [place], Hypertrophy, ST Abn: QRS axis and voltage: right axis deviation (+90 to +180) Medical Decision Making - Lab Data Result diagrams: 02/25/20 23:22 02/25/20 23:22 Lab Results 02/25/20 02/25/20 02/25/20 Range/Units 23:22 23:22 23:22 WBC 8.7 (3.8-10.6) k/uL RBC 5.29 (4.30-5.90) m/uL Hgb 16.5 (13.0-17.5) gm/dL Hct 47.5 (39.0-53.0) % MCV 89.8 (80.0-100.0) fL MCH 31.2 (25.0-35.0) pg MCHC 34.8 (31.0-37.0) g/dL RDW 12.2 (11.5-15.5) % Plt Count 323 (150-450) k/uL MPV 7.9 Neutrophils % 60 % Lymphocytes % 30 % Monocytes % 5 % Eosinophils % 2 % Basophils % 1 % Neutrophils # 5.3 (1.3-7.7) k/uL Lymphocytes # 2.6 (1.0-4.8) k/uL Monocytes # 0.5 (0-1.0) k/uL Eosinophils # 0.2 (0-0.7) k/uL Basophils # 0.1 (0-0.2) k/uL PT 9.8 (9.0-12.0) sec INR 0.9 (<1.2) APTT 27.4 (22.0-30.0) sec Sodium 138 (137-145) mmol/L Potassium 4.2 (3.5-5.1) mmol/L Chloride 103 (98-107) mmol/L Carbon Dioxide 28 (22-30) mmol/L Anion Gap 7 mmol/L BUN 12 (9-20) mg/dL Creatinine 0.74 (0.66-1.25) mg/dL Est GFR (CKD-EPI)AfAm >90 (>60 ml/min/1.73 sqM) Est GFR (CKD-EPI)NonAf >90 (>60 ml/min/1.73 sqM) Glucose 98 (74-99) mg/dL Plasma Lactic Acid [place] (0.7-2.0) mmol/L Calcium 9.6 (8.4-10.2) mg/dL Magnesium 2.2 (1.6-2.3) mg/dL Total Bilirubin 0.5 (0.2-1.3) mg/dL AST 23 (17-59) U/L ALT 17 (4-49) U/L Alkaline Phosphatase 72 (38-126) U/L Total Protein 7.1 (6.3-8.2) g/dL Albumin 4.5 (3.5-5.0) g/dL Urine Color Urine Appearance (Clear) Urine pH (5.0-8.0) Ur Specific [place] (1.001-1.035) Urine Protein (Negative) Urine Glucose (UA) (Negative) Urine Ketones (Negative) Urine Blood (Negative) Urine Nitrite (Negative) Urine Bilirubin (Negative) Urine Urobilinogen (<2.0) mg/dL Ur Leukocyte Esterase (Negative) Urine RBC (0-5) /hpf Amorphous Sediment (None) /hpf Urine Mucus (None) /hpf 02/25/20 02/25/20 Range/Units 23:22 23:35 WBC (3.8-10.6) k/uL RBC (4.30-5.90) m/uL Hgb (13.0-17.5) gm/dL Hct (39.0-53.0) % MCV (80.0-100.0) fL MCH (25.0-35.0) pg MCHC (31.0-37.0) g/dL RDW (11.5-15.5) % Plt Count (150-450) k/uL MPV Neutrophils % % Lymphocytes % % Monocytes % % Eosinophils % % Basophils % % Neutrophils # (1.3-7.7) k/uL Lymphocytes # (1.0-4.8) k/uL Monocytes # (0-1.0) k/uL Eosinophils # (0-0.7) k/uL Basophils # (0-0.2) k/uL PT (9.0-12.0) sec INR (<1.2) APTT (22.0-30.0) sec Sodium (137-145) mmol/L Potassium (3.5-5.1) mmol/L Chloride (98-107) mmol/L Carbon Dioxide (22-30) mmol/L Anion Gap mmol/L BUN (9-20) mg/dL Creatinine (0.66-1.25) mg/dL Est GFR (CKD-EPI)AfAm (>60 ml/min/1.73 sqM) Est GFR (CKD-EPI)NonAf (>60 ml/min/1.73 sqM) Glucose (74-99) mg/dL Plasma Lactic Acid [place] 1.3 (0.7-2.0) mmol/L Calcium (8.4-10.2) mg/dL Magnesium (1.6-2.3) mg/dL Total Bilirubin (0.2-1.3) mg/dL AST (17-59) U/L ALT (4-49) U/L Alkaline Phosphatase (38-126) U/L Total Protein (6.3-8.2) g/dL Albumin (3.5-5.0) g/dL Urine Color Light Yellow Urine Appearance Turbid (Clear) Urine pH 7.5 (5.0-8.0) Ur Specific [place] 1.016 (1.001-1.035) Urine Protein Negative (Negative) Urine Glucose (UA) Negative (Negative) Urine Ketones Negative (Negative) Urine Blood Negative (Negative) Urine Nitrite Negative (Negative) Urine Bilirubin Negative (Negative) Urine Urobilinogen <2.0 (<2.0) mg/dL Ur Leukocyte Esterase Negative (Negative) Urine RBC 2 (0-5) /hpf Amorphous Sediment Occasional H (None) /hpf Urine Mucus Rare H (None) /hpf Disposition Clinical Impression: Viral syndrome Disposition: HOME SELF-CARE Condition: Good Instructions (If sedation given, give patient instructions): Viral Syndrome (ED) Is patient prescribed a controlled substance at d/c from ED?: No Referrals: Ajay Pavon DO [Primary Care Provider] - 1-2 days
--- NOTE | 2020-02-25 23:35 | XR ---
EXAMINATION TYPE: XR chest 2V DATE OF EXAM: 02/25/2020 COMPARISON: 10/09/2018 HISTORY: Headache Weakness TECHNIQUE: FINDINGS: Heart and mediastinum are normal. Lungs are clear. Diaphragm is normal. Bony thorax appears normal. IMPRESSION: Normal chest. No change.
[2020-02-25 23:54] LABS: Amorphous Sediment,Urine Occasional /hpf; Appearance,Urine Turbid (Clear); Bilirubin,Urine Negative (Negative); Blood,Urine Negative (Negative); Color,Urine Light Yellow; Glucose,Urine (UA) Negative (Negative); Ketones,Urine Negative (Negative); Leukocyte Esterase,Urine Negative (Negative); Mucus,Urine Rare /hpf; Nitrite,Urine Negative (Negative); PH, Urine 7.5 (5.0-8.0); Protein,Urine Negative (Negative); RBC,Urine 2 /hpf (0-5); Specific Gravity,Urine 1.016 (1.001-1.035); Urobilinogen,Urine <2.0 mg/dL (<2.0)
[2020-02-25 23:59] LABS: Basophils # (A) 0.1 k/uL (0-0.2); Basophils % (A) 1 %; Eosinophils # (A) 0.2 k/uL (0-0.7); Eosinophils % (A) 2 %; HCT 47.5 % (39.0-53.0); HGB 16.5 gm/dL (13.0-17.5); Lymphocytes # (A) 2.6 k/uL (1.0-4.8); Lymphocytes % (A) 30 %; MCH 31.2 pg (25.0-35.0); MCHC 34.8 g/dL (31.0-37.0); MCV 89.8 fL (80.0-100.0); Mean Platelet Volume 7.9; Monocytes # (A) 0.5 k/uL (0-1.0); Monocytes % (A) 5 %; Neutrophils # (A) 5.3 k/uL (1.3-7.7); Neutrophils % (A) 60 %; Platelet Count 323 k/uL (150-450); RBC 5.29 m/uL (4.30-5.90); RDW 12.2 % (11.5-15.5); WBC 8.7 k/uL (3.8-10.6)
[2020-02-26 00:01] LABS: INR 0.9 (<1.2); Partial Thromboplastin Time 27.4 sec (22.0-30.0); Prothrombin Time 9.8 sec (9.0-12.0)
[2020-02-26 00:05] LABS: ALT 17 U/L (4-49); AST 23 U/L (17-59); African American GFR (CKD) >90 (>60 ml/min/1.73 sqM); Albumin 4.5 g/dL (3.5-5.0); Alkaline Phosphatase 72 U/L (38-126); Anion Gap 7 mmol/L; Blood Urea Nitrogen 12 mg/dL (9-20); Calcium 9.6 mg/dL (8.4-10.2); Carbon Dioxide 28 mmol/L (22-30); Chloride 103 mmol/L (98-107); Glucose 98 mg/dL (74-99); Magnesium 2.2 mg/dL (1.6-2.3); Non-African American GFR(CKD) >90 (>60 ml/min/1.73 sqM); Potassium 4.2 mmol/L (3.5-5.1); Sodium 138 mmol/L (137-145); Total Bilirubin 0.5 mg/dL (0.2-1.3); Total Protein 7.1 g/dL (6.3-8.2)
[2020-02-26 01:00] VITALS: BP 140/80; PULSE 80; TEMP 98.4
== END 2020-02-26 01:00 | disposition home or self-care (01) ==
LOC: EC 22:40
DX: B34.9 Viral infection, unspecified (principal); Z91.030 Bee allergy status
CPT/HCPCS: 36415; 93005; 80053; 83605; 83735; 85025; 85610; 85730; 81001; 71046; 99285; 96360; 96361; U0003